=== PATIENT | male | born 1980 ===

== ENCOUNTER 2017-06-28 05:04 | Inpatient (IN) | payer SELFPAY ==
[2017-06-28] MEDS ORDERED: Sodium Chloride 0.9% 1,000 ML IV ONE (05:20)
[2017-06-28] MEDS ORDERED: Folic Acid 1 MG, Thiamine 100 MG, Multivitamin (MVI) 10 ML in Dextrose 5% In Water 1,00... IV SCH (05:30)
--- NOTE | 2017-06-28 05:41 | C.PDOC ---
History Of Present Illness 37 year old male with a Hx of chronic ETOH abuse presnets to the ER after having a seizure. Patient states he drink everyday, he drank yesterday morning but did not drink for the rest of the day; he reports he was sitting on the couch when he began seizing. Denies Hx of similar, nausea, vomiting, or headache. Time Seen by Provider: 06/28/17 05:21 Chief Complaint (Nursing): Seizure History Per: Patient History/Exam Limitations: no limitations Recent Seizure Activity Began: Just Before Arrival Number Of Seizures: One Length Of Seizures (Duration): Seconds Quality Of Seizure: Generalized Post-ictal Period: No Recent travel outside of the [place]: No Past Medical History Reviewed: Historical Data, Nursing Documentation, Vital Signs Vital Signs: Last Vital Signs Temp 99.3 F 06/28/17 16:00 Pulse 69 06/28/17 19:53 Resp 10 L 06/28/17 19:53 BP 116/85 06/28/17 19:53 Pulse Ox 97 06/28/17 19:53 Family History: States: Unknown Family Hx - Social History Hx Alcohol Use: Yes Hx Substance Use: No - Immunization History Hx Tetanus Toxoid Vaccination: No Hx Influenza Vaccination: No Hx Pneumococcal Vaccination: No Review Of Systems Constitutional: Negative for: Fever, Chills Cardiovascular: Negative for: Chest Pain, Palpitations Gastrointestinal: Negative for: Nausea, Vomiting Neurological: Positive for: Seizures. Negative for: Headache Physical Exam - Physical Exam Appears: Non-toxic, No Acute Distress, Other (Shaky) Skin: Normal Color, Warm, Dry Head: Atraumatic, Normacephalic Eye(s): bilateral: Normal Inspection, PERRL, EOMI Oral Mucosa: Moist Neck: Normal, Supple Chest: Symmetrical, No Tenderness Cardiovascular: Rhythm Regular Respiratory: Normal Breath Sounds, No Rales, No Rhonchi, No Wheezing Gastrointestinal/Abdominal: Soft, No Tenderness Neurological/Psych: Oriented x3, Normal Speech ED Course And Treatment - Laboratory Results Result Diagrams: 06/28/17 05:42 06/28/17 05:42 O2 Sat by Pulse Oximetry: 95 (Room air) Pulse Ox Interpretation: Normal Progress Note: CT head, blood work, and urinalysis ordered. Ativan, librium, and IV fluids administered. Disposition - Disposition Disposition: HOSPITALIZED Disposition Time: 07:00 Condition: SERIOUS - Clinical Impression Clinical Impression: Alcohol withdrawal seizure - PA / SWABBER / Resident Statement MD/DO has reviewed & agrees with the documentation as recorded. - Scribe Statement The provider has reviewed the documentation as recorded by the Scribdemetrice Bhagat All medical record entries made by the Nimeshibe were at my direction and personally dictated by me. I have reviewed the chart and agree that the record accurately reflects my personal performance of the history, physical exam, medical decision making, and the department course for this patient. I have also personally directed, reviewed, and agree with the discharge instructions and disposition. Physician Patient Turnover Patient Signed Over To: Lu Londono Handoff Comments: pending admission
[2017-06-28 05:48] LABS: BASO # 0.1 K/uL (0.0-0.2); BASO % 1.4 % (0.0-2.0); HEMOGLOBIN 12.4 g/dL (12.0-18.0); LYMPH # 2.5 K/uL (1.0-4.3); LYMPH % 41.5 % (20.0-40.0); MEAN CELL VOLUME 92.5 fL (80.0-94.0); MEAN CORPUSCULAR HEMOGLOBIN 30.8 pg (27.0-31.0); MEAN CORPUSCULAR HGB CONC 33.3 g/dL (33.0-37.0); MEAN PLATELET VOLUME 9.8 fL (7.2-11.7); MONO # 0.8 K/uL (0.0-0.8); MONO % 12.3 % (0.0-10.0); NEUT # 2.7 K/uL (1.8-7.0); NEUT % 44.8 % (50.0-75.0); NRBC % 0.1 % (0.0-2.0); RBC 4.04 Mil/uL (4.40-5.90); RED CELL DISTRIBUTION WIDTH 14.4 % (11.5-14.5); WHITE BLOOD COUNT 6.1 K/uL (4.8-10.8)
[2017-06-28 05:58] LABS: ALB/GLOB RATIO 0.9 (1.0-2.1); CALCIUM 9.1 mg/dl (8.6-10.4); GFR AFRICAN-AMERICAN > 60; GFR NON-AFRICAN AMERICAN > 60
--- NOTE | 2017-06-28 05:59 | CT ---
EXAM: CT Head Without Intravenous Contrast CLINICAL HISTORY: 37 years old, male; Pain; Headache; Additional info: Seizure TECHNIQUE: Axial computed tomography images of the head/brain without intravenous contrast. All CT scans at this facility use one or more dose reduction techniques, viz.: automated exposure control; ma/kV adjustment per patient size (including targeted exams where dose is matched to indication; i.e. head); or iterative reconstruction technique. COMPARISON: No relevant prior studies available. FINDINGS: Brain: There is mild diffuse cerebral atrophy present, consistent with this patient's age. No hemorrhage. No significant white matter disease. Ventricles: The ventricular system demonstrates mild diffuse compensatory enlargement. Bones/joints: Deformity of the medial wall of the left orbit, lamina papyracea could be secondary to old trauma. No acute fracture. Soft tissues: Unremarkable. Sinuses: There is mild mucoperiosteal thickening in the maxillary sinuses, consistent with chronic sinusitis. Mastoid air cells: Unremarkable as visualized. No mastoid effusion. IMPRESSION: No evidence of an acute intracranial abnormality.
[2017-06-28] MEDS ORDERED: Folic Acid 1 MG, Thiamine 100 MG, Multivitamin (MVI) 10 ML in Sodium Chloride 0.9% 1,00... IV SCH (06:00)
[2017-06-28 06:03] LABS: ALT/SGPT 84 U/L (21-72); AST/SGOT 241 U/L (17-59); BLOOD UREA NITROGEN 6 mg/dL (9-20)
[2017-06-28 06:26] LABS: SQUAMOUS EPITHIAL 1 /hpf (0-5); URINE BILIRUBIN NEGATIVE (NEGATIVE); URINE BLOOD 1+ (NEGATIVE); URINE CLARITY Hazy (Clear); URINE COLOR Yellow (YELLOW); URINE GLUCOSE (UA) 1+ mg/dL (Normal); URINE LEUKOCYTE ESTERASE NEG Leu/uL (Negative); URINE PROTEIN 3+ mg/dL (NEGATIVE); URINE UROBILINOGEN NORMAL mg/dL (0.2-1.0)
[2017-06-28 06:47] LABS: BARBITURATES, UR NEGATIVE (NEGATIVE); BENZODIAZEPINES, UR NEGATIVE (NEGATIVE); OPIATES, UR NEGATIVE (NEGATIVE); PHENCYCLIDINE, UR NEGATIVE (NEGATIVE)
[2017-06-28] MEDS ORDERED: Magnesium Sulfate 1 gm in D5W 1 GM/100 ML BAG IV STA (06:53)
[2017-06-28] MEDS ORDERED: Magnesium Sulfate 1 gm in D5W 1 GM/100 ML BAG IVPB ONE (06:58)
[2017-06-28] MEDS ORDERED: Multivitamin (MVI) 10 ML, Thiamine 100 MG, Folic Acid 1 MG in Sodium Chloride 0.9% 1,00... IV ONE (08:46)
[2017-06-28] MEDS: Sodium Chloride 0.9% 1,000 ML IV SCH ×4 (09:19→20:55)
[2017-06-28 09:30] LABS: AMYLASE 119 U/L (30-110); LIPASE 123 U/L (23-300)
[2017-06-28 09:46] LABS: INR 1.1
[2017-06-28 10:04] LABS: ARTERIAL BLOOD GAS HCO3 26.5 mmol/L (21-28); ARTERIAL BLOOD GAS O2 SAT 99.8 % (95-98); ARTERIAL BLOOD GAS PCO2 36 mm/Hg (35-45); ARTERIAL BLOOD GAS PH 7.46 (7.35-7.45); ARTERIAL BLOOD GAS PO2 127 mm/Hg (80-100); ARTERIAL BLOOD GAS TCO2 26.7 mmol/L (22-28)
--- NOTE | 2017-06-28 10:37 | CP.PCM.HP ---
<Yunier Manjarrez Jhonny - Last Filed: 06/28/17 11:54> History of Present Illness - History of Present Illness History of Present Illness: CC: "I passed out" HPI: Mr Back is a 37 year old male with a past medical history of chronic alcohol abuse who presented to the ER because his son saw him this AM with involuntary shaking. Per patient, he woke up at 4AM with left-sided squeezing chest pain while sitting on the couch and then he lost consciousness and woke up on the ground. He was then brought to the ER. He does not remember having urine or stool incontinence. His last drink was a 5th of vodka 2 days ago split with a friend. He said yesterday he vomited 7x, non-bloody. He reports having a normal appearing bowel movement yesterday. He stated that yesterday he noticed he had tremors. Of importance, he reports daily spontaneous nose bleeds for the past 6 months. He also noted black stool 1x about 2 months ago. In addition, he states that he began taking aspirin 3 months ago because he read online that it helps relieve chest pain. ED: Librium 100mg, Ativan 1mg IV, magnesium, Fluids -> patient was accepted by ICU PMD: none PMHx: chronic alcohol abuse PSHx: denies Allergies: NKA Home Medications: Aspirin 81mg PO QD FamHx: denies SocialHx: smokes baby cigars twice a week for past 5 years; drinks a 5th of vodka daily (per he used to drink less but lately it's been a 5th of vodka daily); denies illicit drug use; unemployed; lives at home with and son Present on Admission - Present on Admission Any Indicators Present on Admission: No Review of Systems - Constitutional Constitutional: absent: Chills, Fever, Lethargy, Night Sweats - EENT Eyes: absent: Change in Vision - Cardiovascular Cardiovascular: Chest Pain, Chest Pain at Rest. absent: Claudication, Dyspnea on Exertion, Leg Edema, Syncope - Respiratory Respiratory: absent: Cough, Wheezing - Gastrointestinal Gastrointestinal: Nausea, Vomiting. absent: Abdominal Pain, Bloating, Constipation, Diarrhea, Fecal Incontinence, Heartburn, Hematemesis, Hematochezia , Loose Stools - Genitourinary Genitourinary: absent: Dysuria - Integumentary Integumentary: absent: Bleeding Lesions - Neurological Neurological: Abnormal Speech, Lack of Coordination. absent: Confusion, Headaches, Paresthesias, Syncope, Weakness Past Patient History - Past Social History Smoking Status: Never Smoked - PSYCHIATRIC Hx Substance Use: No - SURGICAL HISTORY Hx Surgeries: No Meds Allergies/Adverse Reactions: Allergies Allergy/AdvReac Type Severity Reaction Status Date / Time No Known Allergies Allergy Unverified 06/28/17 05:17 Physical Exam - Constitutional Appears: No Acute Distress, Unkempt - Head Exam Head Exam: ATRAUMATIC, NORMAL INSPECTION - Eye Exam Eye Exam: EOMI Pupil Exam: PERRL - ENT Exam ENT Exam: Mucous Membranes Dry Additional comments: Dried bloody lesions on corners of mouth, R>L Tongue appeared erythematous which cuts/lesions that appeared bloody non-sclerotic eyes - Neck Exam Neck exam: Positive for: Normal Inspection. Negative for: Lymphadenopathy, Tenderness - Respiratory Exam Respiratory Exam: Clear to Auscultation Bilateral, NORMAL BREATHING PATTERN. absent: Rales, Rhonchi, Wheezes - Cardiovascular Exam Cardiovascular Exam: Tachycardia, REGULAR RHYTHM, +S1, +S2. absent: JVD, Systolic Murmur - GI/Abdominal Exam GI & Abdominal Exam: Normal Bowel Sounds, Soft. absent: Distended, Firm, Guarding, Hernia, Organomegaly, Rebound, Rigid, Tenderness - Rectal Exam Additional comments: tight anal tone; no growth palpated; brown stool - Extremities Exam Extremities exam: Positive for: normal capillary refill, normal inspection, pedal pulses present. Negative for: pedal edema, tenderness - Back Exam Back exam: NORMAL INSPECTION. absent: CVA tenderness (L), CVA tenderness (R), rash noted - Neurological Exam Neurological exam: Alert, CN II-XII Intact, Oriented x3 Additional comments: (+) tremulous - Skin Skin Exam: Intact, Normal Color, Warm Results - Vital Signs Recent Vital Signs: Last Vital Signs Temp 99.2 F 06/28/17 09:00 Pulse 105 H 06/28/17 09:40 Resp 16 06/28/17 09:40 BP 130/82 06/28/17 09:40 Pulse Ox 100 06/28/17 09:40 - Labs Result Diagrams: 06/28/17 05:42 06/28/17 05:42 Labs: Laboratory Results - last 24 hr 06/28/17 06/28/17 06/28/17 05:42 05:42 06:20 WBC 6.1 RBC 4.04 L Hgb 12.4 Hct 37.3 MCV 92.5 MCH 30.8 MCHC 33.3 RDW 14.4 Plt Count 117 L MPV 9.8 Neut % (Auto) 44.8 L Lymph % (Auto) 41.5 H [place] % (Auto) 12.3 H Eos % (Auto) 0.0 Baso % (Auto) 1.4 Neut # (Auto) 2.7 Lymph # (Auto) 2.5 [place] # (Auto) 0.8 Eos # (Auto) 0.0 Baso # (Auto) 0.1 Differential Comment PT INR Puncture Site pCO2 pO2 HCO3 ABG pH ABG Total CO2 ABG O2 Saturation ABG Base Excess [place] Test ABG Potassium A-a O2 Difference Respiratory Index Glucose Lactate Liter Flow FiO2 Sodium 141 Potassium 3.7 Chloride 95 L Carbon Dioxide 14 L Anion Gap 35 H BUN 6 L Creatinine 0.8 Est GFR ( Amer) > 60 Est GFR (Non-Af Amer) > 60 Random Glucose 151 H Calcium 9.1 Magnesium 1.5 L Total Bilirubin 1.3 AST 241 H ALT 84 H Alkaline Phosphatase 126 Total Protein 10.3 H Albumin 5.0 Globulin 5.3 H Albumin/Globulin Ratio 0.9 L Amylase 119 H Lipase 123 Arterial Blood Potassium Urine Color Yellow Urine Clarity Hazy Urine pH 6.0 Ur Specific Nolan 1.019 Urine Protein 3+ H Urine Glucose (UA) 1+ H Urine Ketones 1+ H Urine Blood 1+ H Urine Nitrate Negative Urine Bilirubin Negative Urine Urobilinogen Normal Ur Leukocyte Esterase Neg Urine WBC (Auto) 4 Urine RBC (Auto) 7 H Ur Squamous Epith Cells 1 Hyaline Casts 6-10 H Stool Occult Blood Urine Opiates Screen Urine Methadone Screen Ur Barbiturates Screen Ur Phencyclidine Scrn Ur Amphetamines Screen U Benzodiazepines Scrn U Oth Cocaine Metabols U Cannabinoids Screen Alcohol, Quantitative < 10 06/28/17 06/28/17 06/28/17 06:20 09:11 09:28 WBC RBC Hgb Hct MCV MCH MCHC RDW Plt Count MPV Neut % (Auto) Lymph % (Auto) [place] % (Auto) Eos % (Auto) Baso % (Auto) Neut # (Auto) Lymph # (Auto) [place] # (Auto) Eos # (Auto) Baso # (Auto) Differential Comment PT 12.0 INR 1.1 Puncture Site pCO2 pO2 HCO3 ABG pH ABG Total CO2 ABG O2 Saturation ABG Base Excess [place] Test ABG Potassium A-a O2 Difference Respiratory Index Glucose Lactate Liter Flow FiO2 Sodium Potassium Chloride Carbon Dioxide Anion Gap BUN Creatinine Est GFR ( Amer) Est GFR (Non-Af Amer) Random Glucose Calcium Magnesium Total Bilirubin AST ALT Alkaline Phosphatase Total Protein Albumin Globulin Albumin/Globulin Ratio Amylase Lipase Arterial Blood Potassium Urine Color Urine Clarity Urine pH Ur Specific [place] Urine Protein Urine Glucose (UA) Urine Ketones Urine Blood Urine Nitrate Urine Bilirubin Urine Urobilinogen Ur Leukocyte Esterase Urine WBC (Auto) Urine RBC (Auto) Ur Squamous Epith Cells Hyaline Casts Stool Occult Blood Negative Urine Opiates Screen Negative Urine Methadone Screen Negative Ur Barbiturates Screen Negative Ur Phencyclidine Scrn Negative Ur Amphetamines Screen Negative U Benzodiazepines Scrn Negative U Oth Cocaine Metabols Negative U Cannabinoids Screen Negative Alcohol, Quantitative 06/28/17 09:52 WBC RBC Hgb Hct MCV MCH MCHC RDW Plt Count MPV Neut % (Auto) Lymph % (Auto) [place] % (Auto) Eos % (Auto) Baso % (Auto) Neut # (Auto) Lymph # (Auto) [place] # (Auto) Eos # (Auto) Baso # (Auto) Differential Comment PT INR Puncture Site Rba pCO2 36 pO2 127 H HCO3 26.5 ABG pH 7.46 H ABG Total CO2 26.7 ABG O2 Saturation 99.8 H ABG Base Excess 2.0 [place] Test Na ABG Potassium 3.0 L A-a O2 Difference 42.0 Respiratory Index 0.3 Glucose 98 Lactate 0.7 Liter Flow 3.0 FiO2 30.0 Sodium 136.0 Potassium Chloride 103.0 Carbon Dioxide Anion Gap BUN Creatinine Est GFR ( Amer) Est GFR (Non-Af Amer) Random Glucose Calcium Magnesium Total Bilirubin AST ALT Alkaline Phosphatase Total Protein Albumin Globulin Albumin/Globulin Ratio Amylase Lipase Arterial Blood Potassium 3.0 L Urine Color Urine Clarity Urine pH Ur Specific Nolan Urine Protein Urine Glucose (UA) Urine Ketones Urine Blood Urine Nitrate Urine Bilirubin Urine Urobilinogen Ur Leukocyte Esterase Urine WBC (Auto) Urine RBC (Auto) Ur Squamous Epith Cells Hyaline Casts Stool Occult Blood Urine Opiates Screen Urine Methadone Screen Ur Barbiturates Screen Ur Phencyclidine Scrn Ur Amphetamines Screen U Benzodiazepines Scrn U Oth Cocaine Metabols U Cannabinoids Screen Alcohol, Quantitative Assessment & Plan (1) Alcohol withdrawal seizure Assessment and Plan: Alcohol Abuse Metabolic Acidiosis Upgraded to ICU given risk of delirium tremens Patient reports last drink 2-3 days ago (drinking hx of multiple years) Family witnessed tonic-clonic seizure lasting seconds that included tongue biting Aspiration precautions/Seizure precautions Alcohol withdrawal assessments Q1H/Neuro checks Q4H Meds: Ativan 1mg IV Q4H PRN for seizures Clonidine 0.1mg PO Q4H PRN Folic Acid 1mg IV QD NS @ 100cc/hr Imaging: CT head w/o contrast: no evidence of an acute abnormality Status: Acute Priority: High (2) Upper GI bleed Assessment and Plan: GI consult, Dr Ricardo. Will follow recs. Risk Factors: alcohol, aspirin Monitor CBC Protonix 40mg IV Q12H Status: Acute Priority: High (3) Nausea & vomiting Assessment and Plan: Likely secondary to alcohol withdrawal Zofran 4mg IV Q6H PRN for nausea * Pending EKG - will check QTc Status: Acute Priority: High (4) Epistaxis Assessment and Plan: Daily 6 month hx of epistaxis Takes daily ASA for chest pain for last 6 months Unclear if liver cirrhotic/alcoholic disease Status: Acute Priority: High (5) Thrombocytopenia Assessment and Plan: Platelets on admission: 117 AST/ALT on admission: 241/84 Secondary to aspirin and alcohol F/U Abdominal ultrasound to check for liver pathology Status: Acute Priority: High (6) Chest pain Assessment and Plan: F/U Serial ROMIs Q6H and EKGs Q6H Check Lipid panel and TSH/T4 Status: Acute Priority: Medium (7) Prophylactic measure Assessment and Plan: Contraindication to VTE - acute bleeding SCDs Protonix 40mg IV Q12H NPO for now Status: Acute Priority: Low <Maral Avilez V - Last Filed: 06/28/17 12:56> Results - Vital Signs Recent Vital Signs: Last Vital Signs Temp 98.1 F 06/28/17 12:00 Pulse 94 H 06/28/17 12:04 Resp 15 06/28/17 12:04 BP 120/78 06/28/17 12:04 Pulse Ox 96 06/28/17 12:04 - Labs Result Diagrams: 06/28/17 05:42 06/28/17 05:42 Labs: Laboratory Results - last 24 hr 06/28/17 06/28/17 06/28/17 05:42 05:42 06:20 WBC 6.1 RBC 4.04 L Hgb 12.4 Hct 37.3 MCV 92.5 MCH 30.8 MCHC 33.3 RDW 14.4 Plt Count 117 L MPV 9.8 Neut % (Auto) 44.8 L Lymph % (Auto) 41.5 H [place] % (Auto) 12.3 H Eos % (Auto) 0.0 Baso % (Auto) 1.4 Neut # (Auto) 2.7 Lymph # (Auto) 2.5 [place] # (Auto) 0.8 Eos # (Auto) 0.0 Baso # (Auto) 0.1 Differential Comment PT INR Puncture Site pCO2 pO2 HCO3 ABG pH ABG Total CO2 ABG O2 Saturation ABG Base Excess [place] Test ABG Potassium A-a O2 Difference Respiratory Index Glucose Lactate Liter Flow FiO2 Sodium 141 Potassium 3.7 Chloride 95 L Carbon Dioxide 14 L Anion Gap 35 H BUN 6 L Creatinine 0.8 Est GFR ( Amer) > 60 Est GFR (Non-Af Amer) > 60 Random Glucose 151 H Calcium 9.1 Magnesium 1.5 L Total Bilirubin 1.3 AST 241 H ALT 84 H Alkaline Phosphatase 126 Total Protein 10.3 H Albumin 5.0 Globulin 5.3 H Albumin/Globulin Ratio 0.9 L Amylase 119 H Lipase 123 Arterial Blood Potassium Urine Color Yellow Urine Clarity Hazy Urine pH 6.0 Ur Specific Nolan 1.019 Urine Protein 3+ H Urine Glucose (UA) 1+ H Urine Ketones 1+ H Urine Blood 1+ H Urine Nitrate Negative Urine Bilirubin Negative Urine Urobilinogen Normal Ur Leukocyte Esterase Neg Urine WBC (Auto) 4 Urine RBC (Auto) 7 H Ur Squamous Epith Cells 1 Hyaline Casts 6-10 H Stool Occult Blood Urine Opiates Screen Urine Methadone Screen Ur Barbiturates Screen Ur Phencyclidine Scrn Ur Amphetamines Screen U Benzodiazepines Scrn U Oth Cocaine Metabols U Cannabinoids Screen Alcohol, Quantitative < 10 06/28/17 06/28/17 06/28/17 06:20 09:11 09:28 WBC RBC Hgb Hct MCV MCH MCHC RDW Plt Count MPV Neut % (Auto) Lymph % (Auto) [place] % (Auto) Eos % (Auto) Baso % (Auto) Neut # (Auto) Lymph # (Auto) [place] # (Auto) Eos # (Auto) Baso # (Auto) Differential Comment PT 12.0 INR 1.1 Puncture Site pCO2 pO2 HCO3 ABG pH ABG Total CO2 ABG O2 Saturation ABG Base Excess [place] Test ABG Potassium A-a O2 Difference Respiratory Index Glucose Lactate Liter Flow FiO2 Sodium Potassium Chloride Carbon Dioxide Anion Gap BUN Creatinine Est GFR ( Amer) Est GFR (Non-Af Amer) Random Glucose Calcium Magnesium Total Bilirubin AST ALT Alkaline Phosphatase Total Protein Albumin Globulin Albumin/Globulin Ratio Amylase Lipase Arterial Blood Potassium Urine Color Urine Clarity Urine pH Ur Specific [place] Urine Protein Urine Glucose (UA) Urine Ketones Urine Blood Urine Nitrate Urine Bilirubin Urine Urobilinogen Ur Leukocyte Esterase Urine WBC (Auto) Urine RBC (Auto) Ur Squamous Epith Cells Hyaline Casts Stool Occult Blood Negative Urine Opiates Screen Negative Urine Methadone Screen Negative Ur Barbiturates Screen Negative Ur Phencyclidine Scrn Negative Ur Amphetamines Screen Negative U Benzodiazepines Scrn Negative U Oth Cocaine Metabols Negative U Cannabinoids Screen Negative Alcohol, Quantitative 06/28/17 09:52 WBC RBC Hgb Hct MCV MCH MCHC RDW Plt Count MPV Neut % (Auto) Lymph % (Auto) [place] % (Auto) Eos % (Auto) Baso % (Auto) Neut # (Auto) Lymph # (Auto) [place] # (Auto) Eos # (Auto) Baso # (Auto) Differential Comment PT INR Puncture Site Rba pCO2 36 pO2 127 H HCO3 26.5 ABG pH 7.46 H ABG Total CO2 26.7 ABG O2 Saturation 99.8 H ABG Base Excess 2.0 [place] Test Na ABG Potassium 3.0 L A-a O2 Difference 42.0 Respiratory Index 0.3 Glucose 98 Lactate 0.7 Liter Flow 3.0 FiO2 30.0 Sodium 136.0 Potassium Chloride 103.0 Carbon Dioxide Anion Gap BUN Creatinine Est GFR ( Amer) Est GFR (Non-Af Amer) Random Glucose Calcium Magnesium Total Bilirubin AST ALT Alkaline Phosphatase Total Protein Albumin Globulin Albumin/Globulin Ratio Amylase Lipase Arterial Blood Potassium 3.0 L Urine Color Urine Clarity Urine pH Ur Specific Nolan Urine Protein Urine Glucose (UA) Urine Ketones Urine Blood Urine Nitrate Urine Bilirubin Urine Urobilinogen Ur Leukocyte Esterase Urine WBC (Auto) Urine RBC (Auto) Ur Squamous Epith Cells Hyaline Casts Stool Occult Blood Urine Opiates Screen Urine Methadone Screen Ur Barbiturates Screen Ur Phencyclidine Scrn Ur Amphetamines Screen U Benzodiazepines Scrn U Oth Cocaine Metabols U Cannabinoids Screen Alcohol, Quantitative Attending/Attestation - Attestation I have personally seen and examined this patient.: Yes I have fully participated in the care of the patient.: Yes I have reviewed all pertinent clinical information: Yes Notes (Text): Patient seen, examined and case discussed with day-time resident. Patient seen this morning in [facility] Bed 4 with his at bedside. Patient is awake, alert, oriented X3. Prior to my arrival, patient has received Librium 100mg PO X1, and Ativan 1mg IVPX1. Patient has sustained lip laceration , clotted blood over lip, and bloody oropharygneal. Patient is tremulous and noted tongue fasciculations. Per discussion with , noted over 430AM, she was awoken this morning by her son who witnessed her in body tremors". She reports her in full body seizure, attempted CPR, was not responding to her, last for few seconds. During the seizure, patient coughed up blood. This prompted her to bring to hospital. Patient reports last drink was 3 days ago. Patient reports chronically every 2 weeks, large bottle of rum and beer. Patient reports yesterday he had shakes and had nausea and nonbloody vomiting which did not stop and unable to sleep. Patient reports he also takes Aspirin every day for chest pain he has been experiencing for the past one year, because he read up that he should. Patient also reports he has been having black stool but no blood per rectum. Patient reports he has never had alcohol withdrawal seizures before nor has been hospitalized for it. When I ask him why he drinks, he reports "i don't know. I am bored." Case discussed with ICU, patient upgraded to ICU, concern for risk for delirium tremens. It is unclear if the bloody oropharygneal is from epistaxis bleeding, variceal or, upper gi bleeding since patient reported he coughed up blood. Will consult GI. Resident has performed rectal no gross hematochezia noted. Coagulations ordered. Patient consented for blood transfusion if needed, witnessed by the nurse, consent in the chart. EKG ordered shows NSR; heart rate 100. Abdominal US ordered to evaluate severity of liver disease, alcoholic liver disease. Patient is receiving IV fluids at bedside. Reviewed CT head no acute pathology noted. Assessment/Plan (1) Alcohol withdrawal seizure Chronic Alcohol Abuse Metabolic Acidosis Assessment and Plan: * Upgraded to ICU given risk of delirium tremens * Patient reports last drink 2-3 days ago (drinking hx of multiple years) * Family witnessed tonic-clonic seizure lasting seconds that included tongue biting this morning 4:30AM; first time seizure, no prior history of alcohol withdrawal seizure * Aspiration precautions * Seizure precautions * Alcohol withdrawal assessments Q1H/Neuro checks Q4H * Ativan 1mg IV Q4H PRN for seizures * Clonidine 0.1mg PO Q4H PRN * Banana bag * NS @ 100cc/hr * Imaging: CT head w/o contrast: no evidence of an acute abnormality Status: Acute Priority: High (2) Upper GI bleed Assessment and Plan: * GI consult, Dr Ricardo supervisor electronics processing-->discussed with GI and GI fellow who will see the patient; help appreciated * Risk Factors: alcohol, aspirin * Monitor CBC * Protonix 40mg IV Q12H Status: Acute Priority: High (3) Nausea & vomiting Assessment and Plan: * Likely secondary to alcohol withdrawal * Zofran 4mg IV Q6H PRN for nausea--->no Prolonged QT noted on EKG Status: Acute Priority: High (4) Epistaxis Assessment and Plan: * Daily 6 month hx of epistaxis * Takes daily ASA for chest pain for last 6 months * Unclear if liver cirrhotic/alcoholic disease Status: Acute Priority: High (5) Alcoholic Hepatitis Thrombocytopenia Assessment and Plan: * Platelets on admission: 117 * AST/ALT on admission: 241/84 * Secondary to aspirin and alcohol * F/U Abdominal ultrasound to check for liver pathology * Check hepatitis panel Status: Acute Priority: High (6) Chest pain Assessment and Plan: * F/U Serial ROMIs Q6H and EKGs Q6H * Check Lipid panel and TSH/Free T4 for cardiac risk factor * 1st EKG: NSR Status: Acute Priority: Medium (7) Prophylactic measure Assessment and Plan: * Contraindication to VTE -->thrombocytopenia, possible upper GI bleed * SCDs b/l * Protonix 40mg IV Q12H * NPO for now * Aspiration precautions * Seizure precautions Status: Acute Priority: Low
--- NOTE | 2017-06-28 11:37 | CP.CCUPN ---
CCU Subjective - Physician Review Events Since Last Encounter (Free Text): 06/28/17 11:40 37yo M. PMHx ETOH abuse. Today had possible seizure activity with stool incontinence. Patient showing signs of alcohol withdrawal, with tremors. He has recently been having spontaneous epistaxis, melanotic stool. Yesterday he had hematemesis. CCU Objective - Vital Signs / Intake & Output Vital Signs (Last 4 hours): Vital Signs Temp Pulse Resp BP Pulse Ox 06/28/17 10:34 17 95 06/28/17 09:40 105 H 16 130/82 100 06/28/17 09:00 99.2 F 104 H 16 133/79 98 06/28/17 08:11 98 F 115 H 13 122/75 100 Intake and Output (Last 8hrs): Intake & Output 06/27/17 06/28/17 06/28/17 22:59 06:59 14:59 Intake Total 50 Balance 50 Weight 145 lb 127 lb 3.307 oz Intake: Oral 50 Other: Voiding Method Urinal - Physical Exam Head: Positive for: Atraumatic, Normocephalic Pupils: Positive for: PERRL Extroacular Muscles: Positive for: EOMI Conjunctiva: Positive for: Normal Mouth: Positive for: Moist Mucous Membranes Neck: Positive for: Normal Range of Motion Respiratory/Chest: Positive for: Clear to Auscultation Cardiovascular: Positive for: Regular Rate and Rhythm Abdomen: Positive for: Normal Bowel Sounds. Negative for: Tenderness, Distention Neurological: Positive for: GCS=15, CN II-XII Intact Psychiatric: Positive for: Alert, Oriented x 3, Anxious - Medications Active Medications: Active Medications Generic Name Dose Route Start Last Admin Trade Name Freq PRN Reason Stop Dose Admin Clonidine HCl 0.1 mg 06/28/17 08:46 06/28/17 09:09 Catapres PO 0.1 mg Q4H PRN Administration Symptoms of alcohol withdrawl Folic Acid 1 mg/ Thiamine HCl 1,011.2 mls @ 100 mls/hr 06/28/17 09:00 09:15 100 mg/ Multivitamins/Vitamin IV 07/01/17 09:01 100 mls/hr C 10 ml/ Sodium Chloride DAILY ALIYAH Administration Sodium Chloride 1,000 mls @ 100 mls/hr 06/28/17 09:00 06/28/17 09:19 Sodium Chloride 0.9% IV Not Given .Q10H ALIYAH Lorazepam 1 mg 06/28/17 08:46 06/28/17 09:09 Ativan IVP 1 mg Q4H PRN Administration Symptoms of alcohol withdrawl Ondansetron HCl 4 mg 06/28/17 11:00 Zofran Inj IVP Q6H PRN Nausea/Vomiting Pantoprazole Sodium 40 mg 06/28/17 09:00 06/28/17 09:18 Protonix Inj IVP 40 mg Q12H ALIYAH Administration - Patient Studies Lab Studies: Lab Studies 06/28/17 06/28/17 06/28/17 Range/Units 09:52 09:28 09:11 WBC (4.8-10.8) K/uL RBC (4.40-5.90) Mil/uL Hgb (12.0-18.0) g/dL Hct (35.0-51.0) % MCV (80.0-94.0) fL MCH (27.0-31.0) pg MCHC (33.0-37.0) g/dL RDW (11.5-14.5) % Plt Count (130-400) K/uL MPV (7.2-11.7) fL Neut % (Auto) (50.0-75.0) % Lymph % (Auto) (20.0-40.0) % Giles % (Auto) (0.0-10.0) % Eos % (Auto) (0.0-4.0) % Baso % (Auto) (0.0-2.0) % Neut # (Auto) (1.8-7.0) K/uL Lymph # (Auto) (1.0-4.3) K/uL Giles # (Auto) (0.0-0.8) K/uL Eos # (Auto) (0.0-0.7) K/uL Baso # (Auto) (0.0-0.2) K/uL Differential Comment PT 12.0 (9.7-12.2) SECONDS INR 1.1 Puncture Site Rba pCO2 36 (35-45) mm/Hg pO2 127 H (80-100) mm/Hg HCO3 26.5 (21-28) mmol/L ABG pH 7.46 H (7.35-7.45) ABG Total CO2 26.7 (22-28) mmol/L ABG O2 Saturation 99.8 H (95-98) % ABG Base Excess 2.0 (-2.0-3.0) mmol/L Thiago Test Na ABG Potassium 3.0 L (3.6-5.2) mmol/L A-a O2 Difference 42.0 mm/Hg Respiratory Index 0.3 Glucose 98 (75-110) mg/dl Lactate 0.7 (0.7-2.1) mmol/L Liter Flow 3.0 FiO2 30.0 % Sodium 136.0 (132-148) mmol/L Potassium (3.6-5.2) mmol/L Chloride 103.0 (98-107) mmol/L Carbon Dioxide (22-30) mmol/L Anion Gap (10-20) BUN (9-20) mg/dL Creatinine (0.8-1.5) mg/dL Est GFR ( Amer) Est GFR (Non-Af Amer) Random Glucose (75-110) mg/dL Calcium (8.6-10.4) mg/dl Magnesium (1.6-2.3) mg/dL Total Bilirubin (0.2-1.3) mg/dL AST (17-59) U/L ALT (21-72) U/L Alkaline Phosphatase (38-126) U/L Total Protein (6.3-8.3) g/dL Albumin (3.5-5.0) g/dL Globulin (2.2-3.9) gm/dL Albumin/Globulin Ratio (1.0-2.1) Amylase (30-110) U/L Lipase (23-300) U/L Arterial Blood Potassium 3.0 L (3.6-5.2) mmol/L Urine Color (YELLOW) Urine Clarity (Clear) Urine pH (5.0-8.0) Ur Specific [place] (1.003-1.030) Urine Protein (NEGATIVE) mg/dL Urine Glucose (UA) (Normal) mg/dL Urine Ketones (NEGATIVE) mg/dL Urine Blood (NEGATIVE) Urine Nitrate (NEGATIVE) Urine Bilirubin (NEGATIVE) Urine Urobilinogen (0.2-1.0) mg/dL Ur Leukocyte Esterase (Negative) Chris/uL Urine WBC (Auto) (0-5) /hpf Urine RBC (Auto) (0-3) /hpf Ur Squamous Epith Cells (0-5) /hpf Hyaline Casts (0-2) /lpf Stool Occult Blood Negative (NEGATIVE) Urine Opiates Screen (NEGATIVE) Urine Methadone Screen (NEGATIVE) Ur Barbiturates Screen (NEGATIVE) Ur Phencyclidine Scrn (NEGATIVE) Ur Amphetamines Screen (NEGATIVE) U Benzodiazepines Scrn (NEGATIVE) U Oth Cocaine Metabols (NEGATIVE) U Cannabinoids Screen (NEGATIVE) Alcohol, Quantitative (0-10) mg/dl 06/28/17 06/28/17 06/28/17 Range/Units 06:20 06:20 05:42 WBC (4.8-10.8) K/uL RBC (4.40-5.90) Mil/uL Hgb (12.0-18.0) g/dL Hct (35.0-51.0) % MCV (80.0-94.0) fL MCH (27.0-31.0) pg MCHC (33.0-37.0) g/dL RDW (11.5-14.5) % Plt Count (130-400) K/uL MPV (7.2-11.7) fL Neut % (Auto) (50.0-75.0) % Lymph % (Auto) (20.0-40.0) % Giles % (Auto) (0.0-10.0) % Eos % (Auto) (0.0-4.0) % Baso % (Auto) (0.0-2.0) % Neut # (Auto) (1.8-7.0) K/uL Lymph # (Auto) (1.0-4.3) K/uL Giles # (Auto) (0.0-0.8) K/uL Eos # (Auto) (0.0-0.7) K/uL Baso # (Auto) (0.0-0.2) K/uL Differential Comment PT (9.7-12.2) SECONDS INR Puncture Site pCO2 (35-45) mm/Hg pO2 (80-100) mm/Hg HCO3 (21-28) mmol/L ABG pH (7.35-7.45) ABG Total CO2 (22-28) mmol/L ABG O2 Saturation (95-98) % ABG Base Excess (-2.0-3.0) mmol/L Thiago Test ABG Potassium (3.6-5.2) mmol/L A-a O2 Difference mm/Hg Respiratory Index Glucose (75-110) mg/dl Lactate (0.7-2.1) mmol/L Liter Flow FiO2 % Sodium 141 (132-148) mmol/L Potassium 3.7 (3.6-5.2) mmol/L Chloride 95 L (98-107) mmol/L Carbon Dioxide 14 L (22-30) mmol/L Anion Gap 35 H (10-20) BUN 6 L (9-20) mg/dL Creatinine 0.8 (0.8-1.5) mg/dL Est GFR ( Amer) > 60 Est GFR (Non-Af Amer) > 60 Random Glucose 151 H (75-110) mg/dL Calcium 9.1 (8.6-10.4) mg/dl Magnesium 1.5 L (1.6-2.3) mg/dL Total Bilirubin 1.3 (0.2-1.3) mg/dL AST 241 H (17-59) U/L ALT 84 H (21-72) U/L Alkaline Phosphatase 126 (38-126) U/L Total Protein 10.3 H (6.3-8.3) g/dL Albumin 5.0 (3.5-5.0) g/dL Globulin 5.3 H (2.2-3.9) gm/dL Albumin/Globulin Ratio 0.9 L (1.0-2.1) Amylase 119 H (30-110) U/L Lipase 123 (23-300) U/L Arterial Blood Potassium (3.6-5.2) mmol/L Urine Color Yellow (YELLOW) Urine Clarity Hazy (Clear) Urine pH 6.0 (5.0-8.0) Ur Specific [place] 1.019 (1.003-1.030) Urine Protein 3+ H (NEGATIVE) mg/dL Urine Glucose (UA) 1+ H (Normal) mg/dL Urine Ketones 1+ H (NEGATIVE) mg/dL Urine Blood 1+ H (NEGATIVE) Urine Nitrate Negative (NEGATIVE) Urine Bilirubin Negative (NEGATIVE) Urine Urobilinogen Normal (0.2-1.0) mg/dL Ur Leukocyte Esterase Neg (Negative) Chris/uL Urine WBC (Auto) 4 (0-5) /hpf Urine RBC (Auto) 7 H (0-3) /hpf Ur Squamous Epith Cells 1 (0-5) /hpf Hyaline Casts 6-10 H (0-2) /lpf Stool Occult Blood (NEGATIVE) Urine Opiates Screen Negative (NEGATIVE) Urine Methadone Screen Negative (NEGATIVE) Ur Barbiturates Screen Negative (NEGATIVE) Ur Phencyclidine Scrn Negative (NEGATIVE) Ur Amphetamines Screen Negative (NEGATIVE) U Benzodiazepines Scrn Negative (NEGATIVE) U Oth Cocaine Metabols Negative (NEGATIVE) U Cannabinoids Screen Negative (NEGATIVE) Alcohol, Quantitative < 10 (0-10) mg/dl 06/28/17 Range/Units 05:42 WBC 6.1 (4.8-10.8) K/uL RBC 4.04 L (4.40-5.90) Mil/uL Hgb 12.4 (12.0-18.0) g/dL Hct 37.3 (35.0-51.0) % MCV 92.5 (80.0-94.0) fL MCH 30.8 (27.0-31.0) pg MCHC 33.3 (33.0-37.0) g/dL RDW 14.4 (11.5-14.5) % Plt Count 117 L (130-400) K/uL MPV 9.8 (7.2-11.7) fL Neut % (Auto) 44.8 L (50.0-75.0) % Lymph % (Auto) 41.5 H (20.0-40.0) % Giles % (Auto) 12.3 H (0.0-10.0) % Eos % (Auto) 0.0 (0.0-4.0) % Baso % (Auto) 1.4 (0.0-2.0) % Neut # (Auto) 2.7 (1.8-7.0) K/uL Lymph # (Auto) 2.5 (1.0-4.3) K/uL Giles # (Auto) 0.8 (0.0-0.8) K/uL Eos # (Auto) 0.0 (0.0-0.7) K/uL Baso # (Auto) 0.1 (0.0-0.2) K/uL Differential Comment PT (9.7-12.2) SECONDS INR Puncture Site pCO2 (35-45) mm/Hg pO2 (80-100) mm/Hg HCO3 (21-28) mmol/L ABG pH (7.35-7.45) ABG Total CO2 (22-28) mmol/L ABG O2 Saturation (95-98) % ABG Base Excess (-2.0-3.0) mmol/L Thiago Test ABG Potassium (3.6-5.2) mmol/L A-a O2 Difference mm/Hg Respiratory Index Glucose (75-110) mg/dl Lactate (0.7-2.1) mmol/L Liter Flow FiO2 % Sodium (132-148) mmol/L Potassium (3.6-5.2) mmol/L Chloride (98-107) mmol/L Carbon Dioxide (22-30) mmol/L Anion Gap (10-20) BUN (9-20) mg/dL Creatinine (0.8-1.5) mg/dL Est GFR ( Amer) Est GFR (Non-Af Amer) Random Glucose (75-110) mg/dL Calcium (8.6-10.4) mg/dl Magnesium (1.6-2.3) mg/dL Total Bilirubin (0.2-1.3) mg/dL AST (17-59) U/L ALT (21-72) U/L Alkaline Phosphatase (38-126) U/L Total Protein (6.3-8.3) g/dL Albumin (3.5-5.0) g/dL Globulin (2.2-3.9) gm/dL Albumin/Globulin Ratio (1.0-2.1) Amylase (30-110) U/L Lipase (23-300) U/L Arterial Blood Potassium (3.6-5.2) mmol/L Urine Color (YELLOW) Urine Clarity (Clear) Urine pH (5.0-8.0) Ur Specific [place] (1.003-1.030) Urine Protein (NEGATIVE) mg/dL Urine Glucose (UA) (Normal) mg/dL Urine Ketones (NEGATIVE) mg/dL Urine Blood (NEGATIVE) Urine Nitrate (NEGATIVE) Urine Bilirubin (NEGATIVE) Urine Urobilinogen (0.2-1.0) mg/dL Ur Leukocyte Esterase (Negative) Chris/uL Urine WBC (Auto) (0-5) /hpf Urine RBC (Auto) (0-3) /hpf Ur Squamous Epith Cells (0-5) /hpf Hyaline Casts (0-2) /lpf Stool Occult Blood (NEGATIVE) Urine Opiates Screen (NEGATIVE) Urine Methadone Screen (NEGATIVE) Ur Barbiturates Screen (NEGATIVE) Ur Phencyclidine Scrn (NEGATIVE) Ur Amphetamines Screen (NEGATIVE) U Benzodiazepines Scrn (NEGATIVE) U Oth Cocaine Metabols (NEGATIVE) U Cannabinoids Screen (NEGATIVE) Alcohol, Quantitative (0-10) mg/dl Laboratory Results - last 24 hr 06/28/17 06/28/17 06/28/17 05:42 05:42 06:20 WBC 6.1 RBC 4.04 L Hgb 12.4 Hct 37.3 MCV 92.5 MCH 30.8 MCHC 33.3 RDW 14.4 Plt Count 117 L MPV 9.8 Neut % (Auto) 44.8 L Lymph % (Auto) 41.5 H Giles % (Auto) 12.3 H Eos % (Auto) 0.0 Baso % (Auto) 1.4 Neut # (Auto) 2.7 Lymph # (Auto) 2.5 Giles # (Auto) 0.8 Eos # (Auto) 0.0 Baso # (Auto) 0.1 Differential Comment PT INR Puncture Site pCO2 pO2 HCO3 ABG pH ABG Total CO2 ABG O2 Saturation ABG Base Excess Thiago Test ABG Potassium A-a O2 Difference Respiratory Index Glucose Lactate Liter Flow FiO2 Sodium 141 Potassium 3.7 Chloride 95 L Carbon Dioxide 14 L Anion Gap 35 H BUN 6 L Creatinine 0.8 Est GFR ( Amer) > 60 Est GFR (Non-Af Amer) > 60 Random Glucose 151 H Calcium 9.1 Magnesium 1.5 L Total Bilirubin 1.3 AST 241 H ALT 84 H Alkaline Phosphatase 126 Total Protein 10.3 H Albumin 5.0 Globulin 5.3 H Albumin/Globulin Ratio 0.9 L Amylase 119 H Lipase 123 Arterial Blood Potassium Urine Color Yellow Urine Clarity Hazy Urine pH 6.0 Ur Specific [place] 1.019 Urine Protein 3+ H Urine Glucose (UA) 1+ H Urine Ketones 1+ H Urine Blood 1+ H Urine Nitrate Negative Urine Bilirubin Negative Urine Urobilinogen Normal Ur Leukocyte Esterase Neg Urine WBC (Auto) 4 Urine RBC (Auto) 7 H Ur Squamous Epith Cells 1 Hyaline Casts 6-10 H Stool Occult Blood Urine Opiates Screen Urine Methadone Screen Ur Barbiturates Screen Ur Phencyclidine Scrn Ur Amphetamines Screen U Benzodiazepines Scrn U Oth Cocaine Metabols U Cannabinoids Screen Alcohol, Quantitative < 10 06/28/17 06/28/17 06/28/17 06:20 09:11 09:28 WBC RBC Hgb Hct MCV MCH MCHC RDW Plt Count MPV Neut % (Auto) Lymph % (Auto) Giles % (Auto) Eos % (Auto) Baso % (Auto) Neut # (Auto) Lymph # (Auto) Giles # (Auto) Eos # (Auto) Baso # (Auto) Differential Comment PT 12.0 INR 1.1 Puncture Site pCO2 pO2 HCO3 ABG pH ABG Total CO2 ABG O2 Saturation ABG Base Excess Thiago Test ABG Potassium A-a O2 Difference Respiratory Index Glucose Lactate Liter Flow FiO2 Sodium Potassium Chloride Carbon Dioxide Anion Gap BUN Creatinine Est GFR ( Amer) Est GFR (Non-Af Amer) Random Glucose Calcium Magnesium Total Bilirubin AST ALT Alkaline Phosphatase Total Protein Albumin Globulin Albumin/Globulin Ratio Amylase Lipase Arterial Blood Potassium Urine Color Urine Clarity Urine pH Ur Specific [place] Urine Protein Urine Glucose (UA) Urine Ketones Urine Blood Urine Nitrate Urine Bilirubin Urine Urobilinogen Ur Leukocyte Esterase Urine WBC (Auto) Urine RBC (Auto) Ur Squamous Epith Cells Hyaline Casts Stool Occult Blood Negative Urine Opiates Screen Negative Urine Methadone Screen Negative Ur Barbiturates Screen Negative Ur Phencyclidine Scrn Negative Ur Amphetamines Screen Negative U Benzodiazepines Scrn Negative U Oth Cocaine Metabols Negative U Cannabinoids Screen Negative Alcohol, Quantitative 06/28/17 09:52 WBC RBC Hgb Hct MCV MCH MCHC RDW Plt Count MPV Neut % (Auto) Lymph % (Auto) Giles % (Auto) Eos % (Auto) Baso % (Auto) Neut # (Auto) Lymph # (Auto) Giles # (Auto) Eos # (Auto) Baso # (Auto) Differential Comment PT INR Puncture Site Rba pCO2 36 pO2 127 H HCO3 26.5 ABG pH 7.46 H ABG Total CO2 26.7 ABG O2 Saturation 99.8 H ABG Base Excess 2.0 Thiago Test Na ABG Potassium 3.0 L A-a O2 Difference 42.0 Respiratory Index 0.3 Glucose 98 Lactate 0.7 Liter Flow 3.0 FiO2 30.0 Sodium 136.0 Potassium Chloride 103.0 Carbon Dioxide Anion Gap BUN Creatinine Est GFR ( Amer) Est GFR (Non-Af Amer) Random Glucose Calcium Magnesium Total Bilirubin AST ALT Alkaline Phosphatase Total Protein Albumin Globulin Albumin/Globulin Ratio Amylase Lipase Arterial Blood Potassium 3.0 L Urine Color Urine Clarity Urine pH Ur Specific [place] Urine Protein Urine Glucose (UA) Urine Ketones Urine Blood Urine Nitrate Urine Bilirubin Urine Urobilinogen Ur Leukocyte Esterase Urine WBC (Auto) Urine RBC (Auto) Ur Squamous Epith Cells Hyaline Casts Stool Occult Blood Urine Opiates Screen Urine Methadone Screen Ur Barbiturates Screen Ur Phencyclidine Scrn Ur Amphetamines Screen U Benzodiazepines Scrn U Oth Cocaine Metabols U Cannabinoids Screen Alcohol, Quantitative EKG/Cardiology Studies: Cardiology / EKG Studies 06/28/17 08:45 EKG [ELECTROCARDIOGRAM] Stat Comment: 4 Mode Of Transportation: PORTABLE Reason For Exam: new onset seizure 06/28/17 17:00 EKG [ELECTROCARDIOGRAM] Q6H Comment: Mode Of Transportation: Reason For Exam: chest pain 06/28/17 23:00 EKG [ELECTROCARDIOGRAM] Q6H Comment: Mode Of Transportation: Reason For Exam: chest pain Review of Systems - Review of Systems All systems: reviewed and no additional remarkable complaints except - Psychiatric Additional comments: agitated, anxious, withdrawing. Critical Care Progress Note - Nutrition Nutrition: Nutrition Category Date Time Status NPO Diet [DIET] Diets 06/28/17 Breakfast Active Assessment/Plan (1) Alcohol withdrawal seizure Assessment and plan: 37yo M. PMHx ETOH abuse. Today had possible seizure activity with stool incontinence. Patient showing signs of alcohol withdrawal, with tremors. He has recently been having spontaneous epistaxis, melanotic stool. Yesterday he had hematemesis. Neuro: alert and agitated. Pulm: no acute issues, breathing spontaneously on room air. CV: hemodynamically stable. Hem: no acute issues, possibly hemoconcentrated. Renal: metabolic acidosis. D5W+MVI+Thiamine@100 Endo: no acute issues. GI: NPO except for meds. upper GI bleed, uncertain etiology (variceal vs ulcer) , GI consulted, possible EGD in the future. Protonix IV q12h. Order US abdomen to assess for cirrhosis and portal hypertension. ID: no acute issues. DVT proph - lovenox GI proph - protonix IV Code status - full code Critical Care Time spent 35 minutes Multi-disciplinary rounds were performed with house staff, nursing, speech therapy, respiratory therapy, pharmacy and nutrition with integrated input from the primary team/attending and other consulting services. The documented time is cumulative and includes review of patient data/exams/labs/chart review and examination of the patient on rounds and throughout the day; time is exclusive of any procedures or teaching time. Current Visit: Yes Status: Acute Priority: High
[2017-06-28 12:48] LABS: CK-MB 2.54 ng/mL (0.0-3.38)
--- NOTE | 2017-06-28 14:27 | CP.PCM.CON ---
<Jese Bernal - Last Filed: 06/28/17 14:27> History of Present Illness - History of Present Illness History of Present Illness: PGY 4 Initial GI Consult Yury Back is a 37M w/ hx of chronic ETOH use who presents to the ER after having a witnessed seizure. Pt was found to have seizures at home and bit his tongue and lips. He reports consuming 1/5 L of vodka daily. His last drink was 3 days ago. He denies any previous hospitalization for alcohol related issues. He notes having dark stools for 3-4 days last week. He denies any BRBPR, hematemesis or coffee-ground emesis. His notes that he had blood oozing from from his tongue and lips after his seizure. His hgb upon presentation was 12. He was given librium in the ER. He was started on ativan and sent to the ICU for DTs and possible GI bleed. Pt noted previous chest pain which started 1 week ago. He took ASA, because he read online that it was cardioprotective. No acute episodes of GI bleeding since admission. PMD: none PMHx: chronic alcohol abuse PSHx: denies Home Medications: Aspirin 81mg PO QD FamHx: denies SocialHx: smokes baby cigars twice a week for past 5 years; drinks a 5th of vodka daily (per he used to drink less but lately it's been a 5th of vodka daily); denies illicit drug use; unemployed; lives at home with and son ROS: 12 point ROS conducted, neg other than above Past Patient History - Past Medical History & Family History Past Medical History?: Yes - Past Social History Smoking Status: Never Smoked - CARDIAC Hx Cardiac Disorders: No - PULMONARY Hx Respiratory Disorders: No - NEUROLOGICAL Hx Neurological Disorder: No - HEENT Hx HEENT Problems: No - RENAL Hx Chronic Kidney Disease: No - ENDOCRINE/METABOLIC Hx Endocrine Disorders: No - HEMATOLOGICAL/ONCOLOGICAL Hx Blood Disorders: No - INTEGUMENTARY Hx Dermatological Problems: No - MUSCULOSKELETAL/RHEUMATOLOGICAL Hx Falls: Yes - GASTROINTESTINAL Hx Gastrointestinal Disorders: No - GENITOURINARY/GYNECOLOGICAL Hx Genitourinary Disorders: No - PSYCHIATRIC Hx Substance Use: No - SURGICAL HISTORY Hx Surgeries: No - ANESTHESIA Hx Anesthesia: No Meds Allergies/Adverse Reactions: Allergies Allergy/AdvReac Type Severity Reaction Status Date / Time No Known Allergies Allergy Unverified 06/28/17 05:17 - Medications Medications: Current Medications Chlordiazepoxide (Librium) 25 mg PO Q8 [facility] Clonidine HCl (Catapres) 0.1 mg PO Q4H PRN PRN Reason: Symptoms of alcohol withdrawl Last Admin: 06/28/17 09:09 Dose: 0.1 mg Folic Acid 1 mg/ Thiamine HCl 100 mg/ Multivitamins/Vitamin C 10 ml/ Sodium Chloride 1,011.2 mls @ 100 mls/hr IV DAILY [facility] Stop: 07/01/17 09:01 Last Admin: 06/28/17 09:15 Dose: 100 mls/hr Sodium Chloride (Sodium Chloride 0.9%) 1,000 mls @ 100 mls/hr IV .Q10H [facility] Last Admin: 06/28/17 09:19 Dose: Not Given Lorazepam (Ativan) 2 mg IVP Q4H PRN PRN Reason: Symptoms of alcohol w/d if npo Ondansetron HCl (Zofran Inj) 4 mg IVP Q6H PRN PRN Reason: Nausea/Vomiting Pantoprazole Sodium (Protonix Inj) 40 mg IVP Q12H [facility] Last Admin: 06/28/17 09:18 Dose: 40 mg Physical Exam - Constitutional Appears: Well, No Acute Distress - Head Exam Head Exam: ATRAUMATIC, NORMOCEPHALIC - Eye Exam Eye Exam: Normal appearance Pupil Exam: NORMAL ACCOMODATION - ENT Exam ENT Exam: Mucous Membranes Moist, Normal Exam - Neck Exam Neck exam: Positive for: Normal Inspection - Respiratory Exam Respiratory Exam: Clear to Auscultation Bilateral, NORMAL BREATHING PATTERN. absent: Prolonged Expiratory Phase, Rales, Rhonchi, Wheezes - Cardiovascular Exam Cardiovascular Exam: REGULAR RHYTHM, +S1, +S2 - GI/Abdominal Exam GI & Abdominal Exam: Normal Bowel Sounds, Soft. absent: Guarding, Hernia, Hyperactive Bowel Sounds, Rebound, Rigid - Rectal Exam Rectal Exam: NORMAL INSPECTION. absent: Black Stool, Bloody Stool - Extremities Exam Extremities exam: Negative for: calf tenderness, joint swelling - Neurological Exam Neurological exam: Alert, Oriented x3 - Psychiatric Exam Psychiatric exam: Normal Affect, Normal Mood - Skin Skin Exam: Intact, Normal Color, Warm Results - Vital Signs Recent Vital Signs: Last Vital Signs Temp 98.1 F 06/28/17 12:00 Pulse 81 06/28/17 13:53 Resp 12 06/28/17 13:53 BP 122/79 06/28/17 13:53 Pulse Ox 98 06/28/17 13:53 - Labs Result Diagrams: 06/28/17 05:42 06/28/17 05:42 Labs: Laboratory Results - last 24 hr 06/28/17 06/28/17 06/28/17 05:42 05:42 06:20 WBC 6.1 RBC 4.04 L Hgb 12.4 Hct 37.3 MCV 92.5 MCH 30.8 MCHC 33.3 RDW 14.4 Plt Count 117 L MPV 9.8 Neut % (Auto) 44.8 L Lymph % (Auto) 41.5 H [place] % (Auto) 12.3 H Eos % (Auto) 0.0 Baso % (Auto) 1.4 Neut # (Auto) 2.7 Lymph # (Auto) 2.5 [place] # (Auto) 0.8 Eos # (Auto) 0.0 Baso # (Auto) 0.1 Differential Comment PT INR Puncture Site pCO2 pO2 HCO3 ABG pH ABG Total CO2 ABG O2 Saturation ABG Base Excess [place]iago Test ABG Potassium A-a O2 Difference Respiratory Index Glucose Lactate Liter Flow FiO2 Sodium 141 Potassium 3.7 Chloride 95 L Carbon Dioxide 14 L Anion Gap 35 H BUN 6 L Creatinine 0.8 Est GFR ( Amer) > 60 Est GFR (Non-Af Amer) > 60 Random Glucose 151 H Calcium 9.1 Magnesium 1.5 L Total Bilirubin 1.3 AST 241 H ALT 84 H Alkaline Phosphatase 126 Total Creatine Kinase CK-MB (Mass) Troponin I Total Protein 10.3 H Albumin 5.0 Globulin 5.3 H Albumin/Globulin Ratio 0.9 L Amylase 119 H Lipase 123 Arterial Blood Potassium Urine Color Yellow Urine Clarity Hazy Urine pH 6.0 Ur Specific [place] 1.019 Urine Protein 3+ H Urine Glucose (UA) 1+ H Urine Ketones 1+ H Urine Blood 1+ H Urine Nitrate Negative Urine Bilirubin Negative Urine Urobilinogen Normal Ur Leukocyte Esterase Neg Urine WBC (Auto) 4 Urine RBC (Auto) 7 H Ur Squamous Epith Cells 1 Hyaline Casts 6-10 H Stool Occult Blood Urine Opiates Screen Urine Methadone Screen Ur Barbiturates Screen Ur Phencyclidine Scrn Ur Amphetamines Screen U Benzodiazepines Scrn U Oth Cocaine Metabols U Cannabinoids Screen Alcohol, Quantitative < 10 06/28/17 06/28/17 06/28/17 06:20 09:11 09:28 WBC RBC Hgb Hct MCV MCH MCHC RDW Plt Count MPV Neut % (Auto) Lymph % (Auto) [place] % (Auto) Eos % (Auto) Baso % (Auto) Neut # (Auto) Lymph # (Auto) [place] # (Auto) Eos # (Auto) Baso # (Auto) Differential Comment PT 12.0 INR 1.1 Puncture Site pCO2 pO2 HCO3 ABG pH ABG Total CO2 ABG O2 Saturation ABG Base Excess [place] Test ABG Potassium A-a O2 Difference Respiratory Index Glucose Lactate Liter Flow FiO2 Sodium Potassium Chloride Carbon Dioxide Anion Gap BUN Creatinine Est GFR ( Amer) Est GFR (Non-Af Amer) Random Glucose Calcium Magnesium Total Bilirubin AST ALT Alkaline Phosphatase Total Creatine Kinase CK-MB (Mass) Troponin I Total Protein Albumin Globulin Albumin/Globulin Ratio Amylase Lipase Arterial Blood Potassium Urine Color Urine Clarity Urine pH Ur Specific [place] Urine Protein Urine Glucose (UA) Urine Ketones Urine Blood Urine Nitrate Urine Bilirubin Urine Urobilinogen Ur Leukocyte Esterase Urine WBC (Auto) Urine RBC (Auto) Ur Squamous Epith Cells Hyaline Casts Stool Occult Blood Negative Urine Opiates Screen Negative Urine Methadone Screen Negative Ur Barbiturates Screen Negative Ur Phencyclidine Scrn Negative Ur Amphetamines Screen Negative U Benzodiazepines Scrn Negative U Oth Cocaine Metabols Negative U Cannabinoids Screen Negative Alcohol, Quantitative 06/28/17 06/28/17 09:52 12:13 WBC RBC Hgb Hct MCV MCH MCHC RDW Plt Count MPV Neut % (Auto) Lymph % (Auto) [place] % (Auto) Eos % (Auto) Baso % (Auto) Neut # (Auto) Lymph # (Auto) [place] # (Auto) Eos # (Auto) Baso # (Auto) Differential Comment PT INR Puncture Site Rba pCO2 36 pO2 127 H HCO3 26.5 ABG pH 7.46 H ABG Total CO2 26.7 ABG O2 Saturation 99.8 H ABG Base Excess 2.0 Thiago Test Na ABG Potassium 3.0 L A-a O2 Difference 42.0 Respiratory Index 0.3 Glucose 98 Lactate 0.7 Liter Flow 3.0 FiO2 30.0 Sodium 136.0 Potassium Chloride 103.0 Carbon Dioxide Anion Gap BUN Creatinine Est GFR ( Amer) Est GFR (Non-Af Amer) Random Glucose Calcium Magnesium Total Bilirubin AST ALT Alkaline Phosphatase Total Creatine Kinase 476 H CK-MB (Mass) 2.54 Troponin I < 0.0120 Total Protein Albumin Globulin Albumin/Globulin Ratio Amylase Lipase Arterial Blood Potassium 3.0 L Urine Color Urine Clarity Urine pH Ur Specific [place] Urine Protein Urine Glucose (UA) Urine Ketones Urine Blood Urine Nitrate Urine Bilirubin Urine Urobilinogen Ur Leukocyte Esterase Urine WBC (Auto) Urine RBC (Auto) Ur Squamous Epith Cells Hyaline Casts Stool Occult Blood Urine Opiates Screen Urine Methadone Screen Ur Barbiturates Screen Ur Phencyclidine Scrn Ur Amphetamines Screen U Benzodiazepines Scrn U Oth Cocaine Metabols U Cannabinoids Screen Alcohol, Quantitative Assessment & Plan - Assessment and Plan (Free Text) Assessment: Yury Back is a 37M w/ hx of chronic ETOH abuse who presented to the ED after a witnessed DTs and seizures. Elevated LFTs likely 2/2 alcoholic ETOH, r/o viral etiology and autoimmune ETOH abuse Anemia DT Alcohol withdrawl Plan: -keep NPO -rectal exam was neg with no evidence of melena or BRB -continue protonix 40mg IV BID -withdrawl protocol as per primary medicine team, agree with ativan -DF is 1.5, no indication for steroids -will likely do an EGD on friday -advised ETOH cessation -maintain 2 large bore IVs type and screen transfuse if hgb < 7 or symptomatic -will send for viral seriologies and autoimmune markers -replete electrolytes including Mg, watch for refeeding sydrome D/W Dr. haile <Yoon Haile - Last Filed: 06/28/17 16:26> Meds - Medications Medications: Current Medications Chlordiazepoxide (Librium) 25 mg PO Q8 [facility] Last Admin: 06/28/17 14:50 Dose: 25 mg Clonidine HCl (Catapres) 0.1 mg PO Q4H PRN PRN Reason: Symptoms of alcohol withdrawl Last Admin: 06/28/17 09:09 Dose: 0.1 mg Folic Acid 1 mg/ Thiamine HCl 100 mg/ Multivitamins/Vitamin C 10 ml/ Sodium Chloride 1,011.2 mls @ 100 mls/hr IV DAILY [facility] Stop: 07/01/17 09:01 Last Admin: 06/28/17 09:15 Dose: 100 mls/hr Sodium Chloride (Sodium Chloride 0.9%) 1,000 mls @ 100 mls/hr IV .Q10H [facility] Last Admin: 06/28/17 16:17 Dose: 100 mls/hr Lorazepam (Ativan) 2 mg IVP Q4H PRN PRN Reason: Symptoms of alcohol w/d if npo Ondansetron HCl (Zofran Inj) 4 mg IVP Q6H PRN PRN Reason: Nausea/Vomiting Pantoprazole Sodium (Protonix Inj) 40 mg IVP Q12H [facility] Last Admin: 06/28/17 09:18 Dose: 40 mg Results - Vital Signs Recent Vital Signs: Last Vital Signs Temp 99.3 F 06/28/17 16:00 Pulse 75 06/28/17 15:53 Resp 13 06/28/17 15:53 BP 117/70 06/28/17 15:53 Pulse Ox 99 06/28/17 15:53 - Labs Result Diagrams: 06/28/17 05:42 06/28/17 05:42 Labs: Laboratory Results - last 24 hr 06/28/17 06/28/17 06/28/17 05:42 05:42 06:20 WBC 6.1 RBC 4.04 L Hgb 12.4 Hct 37.3 MCV 92.5 MCH 30.8 MCHC 33.3 RDW 14.4 Plt Count 117 L MPV 9.8 Neut % (Auto) 44.8 L Lymph % (Auto) 41.5 H [place] % (Auto) 12.3 H Eos % (Auto) 0.0 Baso % (Auto) 1.4 Neut # (Auto) 2.7 Lymph # (Auto) 2.5 [place] # (Auto) 0.8 Eos # (Auto) 0.0 Baso # (Auto) 0.1 Differential Comment PT INR Puncture Site pCO2 pO2 HCO3 ABG pH ABG Total CO2 ABG O2 Saturation ABG Base Excess [place] Test ABG Potassium A-a O2 Difference Respiratory Index Glucose Lactate Liter Flow FiO2 Sodium 141 Potassium 3.7 Chloride 95 L Carbon Dioxide 14 L Anion Gap 35 H BUN 6 L Creatinine 0.8 Est GFR ( Amer) > 60 Est GFR (Non-Af Amer) > 60 Random Glucose 151 H Calcium 9.1 Magnesium 1.5 L Total Bilirubin 1.3 AST 241 H ALT 84 H Alkaline Phosphatase 126 Total Creatine Kinase CK-MB (Mass) Troponin I Total Protein 10.3 H Albumin 5.0 Globulin 5.3 H Albumin/Globulin Ratio 0.9 L Amylase 119 H Lipase 123 Arterial Blood Potassium Urine Color Yellow Urine Clarity Hazy Urine pH 6.0 Ur Specific [place] 1.019 Urine Protein 3+ H Urine Glucose (UA) 1+ H Urine Ketones 1+ H Urine Blood 1+ H Urine Nitrate Negative Urine Bilirubin Negative Urine Urobilinogen Normal Ur Leukocyte Esterase Neg Urine WBC (Auto) 4 Urine RBC (Auto) 7 H Ur Squamous Epith Cells 1 Hyaline Casts 6-10 H Stool Occult Blood Urine Opiates Screen Urine Methadone Screen Ur Barbiturates Screen Ur Phencyclidine Scrn Ur Amphetamines Screen U Benzodiazepines Scrn U Oth Cocaine Metabols U Cannabinoids Screen Alcohol, Quantitative < 10 Hepatitis A IgM Ab Hep Bs Antigen Hep B Core IgM Ab Hepatitis C Antibody 06/28/17 06/28/17 06/28/17 06:20 09:11 09:28 WBC RBC Hgb Hct MCV MCH MCHC RDW Plt Count MPV Neut % (Auto) Lymph % (Auto) [place] % (Auto) Eos % (Auto) Baso % (Auto) Neut # (Auto) Lymph # (Auto) [place] # (Auto) Eos # (Auto) Baso # (Auto) Differential Comment PT 12.0 INR 1.1 Puncture Site pCO2 pO2 HCO3 ABG pH ABG Total CO2 ABG O2 Saturation ABG Base Excess [place] Test ABG Potassium A-a O2 Difference Respiratory Index Glucose Lactate Liter Flow FiO2 Sodium Potassium Chloride Carbon Dioxide Anion Gap BUN Creatinine Est GFR ( Amer) Est GFR (Non-Af Amer) Random Glucose Calcium Magnesium Total Bilirubin AST ALT Alkaline Phosphatase Total Creatine Kinase CK-MB (Mass) Troponin I Total Protein Albumin Globulin Albumin/Globulin Ratio Amylase Lipase Arterial Blood Potassium Urine Color Urine Clarity Urine pH Ur Specific [place] Urine Protein Urine Glucose (UA) Urine Ketones Urine Blood Urine Nitrate Urine Bilirubin Urine Urobilinogen Ur Leukocyte Esterase Urine WBC (Auto) Urine RBC (Auto) Ur Squamous Epith Cells Hyaline Casts Stool Occult Blood Negative Urine Opiates Screen Negative Urine Methadone Screen Negative Ur Barbiturates Screen Negative Ur Phencyclidine Scrn Negative Ur Amphetamines Screen Negative U Benzodiazepines Scrn Negative U Oth Cocaine Metabols Negative U Cannabinoids Screen Negative Alcohol, Quantitative Hepatitis A IgM Ab Hep Bs Antigen Hep B Core IgM Ab Hepatitis C Antibody 06/28/17 06/28/17 06/28/17 09:52 12:13 14:20 WBC RBC Hgb Hct MCV MCH MCHC RDW Plt Count MPV Neut % (Auto) Lymph % (Auto) [place] % (Auto) Eos % (Auto) Baso % (Auto) Neut # (Auto) Lymph # (Auto) [place] # (Auto) Eos # (Auto) Baso # (Auto) Differential Comment PT INR Puncture Site Rba pCO2 36 pO2 127 H HCO3 26.5 ABG pH 7.46 H ABG Total CO2 26.7 ABG O2 Saturation 99.8 H ABG Base Excess 2.0 [place]iago Test Na ABG Potassium 3.0 L A-a O2 Difference 42.0 Respiratory Index 0.3 Glucose 98 Lactate 0.7 Liter Flow 3.0 FiO2 30.0 Sodium 136.0 Potassium Chloride 103.0 Carbon Dioxide Anion Gap BUN Creatinine Est GFR ( Amer) Est GFR (Non-Af Amer) Random Glucose Calcium Magnesium Total Bilirubin AST ALT Alkaline Phosphatase Total Creatine Kinase 476 H CK-MB (Mass) 2.54 Troponin I < 0.0120 Total Protein Albumin Globulin Albumin/Globulin Ratio Amylase Lipase Arterial Blood Potassium 3.0 L Urine Color Urine Clarity Urine pH Ur Specific [place] Urine Protein Urine Glucose (UA) Urine Ketones Urine Blood Urine Nitrate Urine Bilirubin Urine Urobilinogen Ur Leukocyte Esterase Urine WBC (Auto) Urine RBC (Auto) Ur Squamous Epith Cells Hyaline Casts Stool Occult Blood Urine Opiates Screen Urine Methadone Screen Ur Barbiturates Screen Ur Phencyclidine Scrn Ur Amphetamines Screen U Benzodiazepines Scrn U Oth Cocaine Metabols U Cannabinoids Screen Alcohol, Quantitative Hepatitis A IgM Ab Negative Hep Bs Antigen Negative Hep B Core IgM Ab Negative Hepatitis C Antibody Negative Attending/Attestation - Attestation I have personally seen and examined this patient.: Yes I have fully participated in the care of the patient.: Yes I have reviewed all pertinent clinical information: Yes Notes (Text): 06/28/17 16:23 Patient seen with GI fellow. This is a 37 yr old M with history of chronic ETOH abuse who presented to the ED after a witnessed DTs and seizures. He is currently on seizure precaution. Rectal exam was neg with no evidence of melena or BRBPR. maintain 2 large bore IV and trabsfuse if Hb less than 7 g/dl. Daily MELD labs. Continue PPi. Will consider EGD on Friday. Will send for viral seriologies and autoimmune markers. Replete electrolytes including Mg, watch for refeeding sydrome
[2017-06-28 15:00] LABS: HEPATITIS B SURFACE AG Negative (NEGATIVE)
[2017-06-28 15:06] LABS: HEPATITIS A IGM NEGATIVE (NEGATIVE); HEPATITIS B CORE AB NEGATIVE (NEGATIVE)
[2017-06-28 15:18] LABS: HEPATITIS C ANTIBODY NEGATIVE (NEGATIVE)
--- NOTE | 2017-06-28 16:15 | US ---
HISTORY: assess liver pathology COMPARISON: None. TECHNIQUE: Sonographic evaluation of the abdomen. FINDINGS: LIVER: Measures 16.6 cm. Diffusely increased echogenicity of the liver parenchyma. Consistent with fatty infiltration. No mass. Smooth contour. No biliary ductal dilatation. GALLBLADDER: Unremarkable. No gallstones. COMMON BILE DUCT: Measures 4 mm. No stones. No dilatation. PANCREAS: Unremarkable as visualized. No mass. No ductal dilatation. RIGHT KIDNEY: Measures 10.2cm. Normal echogenicity. No calculus, mass, or hydronephrosis. LEFT KIDNEY: Measures 10.4cm. Normal echogenicity. No calculus, mass, or hydronephrosis. SPLEEN: Normal in size and contour. No mass. AORTA: No aneurysmal dilatation. IVC: Unremarkable. OTHER FINDINGS: None. IMPRESSION: Limited portable examination. Fatty infiltration of the liver. No evidence of biliary obstruction. No additional abnormality.
[2017-06-28 17:31] LABS: INR 1.1; PROTHROMBIN TIME 12.6 SECONDS (9.7-12.2)
[2017-06-28 17:36] LABS: IRON 334 ug/dL (49-181)
[2017-06-28 17:46] LABS: % IRON SATURATION 99 (20-55); TOTAL IRON BINDING CAPACITY 337 ug/dL (250-450)
[2017-06-28 18:00] LABS: CK-MB 2.41 ng/mL (0.0-3.38)
[2017-06-28 18:14] LABS: FERRITIN 71.9 ng/mL
[2017-06-28 23:12] LABS: CK-MB 1.77 ng/mL (0.0-3.38)
[2017-06-29] MEDS: Sodium Chloride 0.9% 1,000 ML IV SCH ×2 (01:43→04:55)
[2017-06-29 06:42] LABS: BASO % 1.4 % (0.0-2.0); EOS % 0.9 % (0.0-4.0); HEMOGLOBIN 10.6 g/dL (12.0-18.0); LYMPH % 26.3 % (20.0-40.0); MEAN CELL VOLUME 91.8 fL (80.0-94.0); MEAN CORPUSCULAR HEMOGLOBIN 30.6 pg (27.0-31.0); MEAN CORPUSCULAR HGB CONC 33.3 g/dL (33.0-37.0); MONO # 0.5 K/uL (0.0-0.8); MONO % 13.7 % (0.0-10.0); NEUT # 2.1 K/uL (1.8-7.0); NEUT % 57.7 % (50.0-75.0); NRBC % 0.1 % (0.0-2.0); RBC 3.48 Mil/uL (4.40-5.90); RED CELL DISTRIBUTION WIDTH 14.8 % (11.5-14.5); WHITE BLOOD COUNT 3.6 K/uL (4.8-10.8)
[2017-06-29 06:58] LABS: ALB/GLOB RATIO 1.1 (1.0-2.1); ALBUMIN 4.1 g/dL (3.5-5.0); ALT/SGPT 76 U/L (21-72); AST/SGOT 214 U/L (17-59); BLOOD UREA NITROGEN 2 mg/dL (9-20); CALCIUM 8.6 mg/dl (8.6-10.4); GFR AFRICAN-AMERICAN > 60; GFR NON-AFRICAN AMERICAN > 60; HDL CHOLESTEROL 71 mg/dL (30-70)
[2017-06-29 07:08] LABS: LDL CHOLESTEROL 263 mg/dL (0-129)
--- NOTE | 2017-06-29 08:40 | CP.PCM.PN ---
Subjective - Date & Time of Evaluation Date of Evaluation: 06/29/17 Time of Evaluation: 08:35 - Subjective Subjective: Medical Attending note: Patient seen and examined at bedside. Patient denies headache, denies chest pain, denies cough, denies abdominal pain , denies nausea, denies vomitting, denies hematochzia. Patient reports he is hungry and wants real food. Objective - Vital Signs/Intake and Output Vital Signs (last 24 hours): Temp Pulse Resp BP Pulse Ox 97.3 F L 72 18 132/72 97 06/29/17 00:00 06/29/17 07:00 06/29/17 07:00 06/29/17 06:53 06/29/17 07:00 Intake and Output: 06/29/17 06/29/17 06:59 18:59 Intake Total 1625 125 Output Total 2500 Balance -875 125 - Medications Medications: Current Medications Chlordiazepoxide (Librium) 25 mg PO Q8 [facility] Last Admin: 06/29/17 05:34 Dose: 25 mg Clonidine HCl (Catapres) 0.1 mg PO Q4H PRN PRN Reason: Symptoms of alcohol withdrawl Last Admin: 06/28/17 09:09 Dose: 0.1 mg Folic Acid 1 mg/ Thiamine HCl 100 mg/ Multivitamins/Vitamin C 10 ml/ Sodium Chloride 1,011.2 mls @ 100 mls/hr IV DAILY [facility] Stop: 07/01/17 09:01 Last Admin: 06/28/17 09:15 Dose: 100 mls/hr Sodium Chloride (Sodium Chloride 0.9%) 1,000 mls @ 125 mls/hr IV .Q8H [facility] Last Admin: 06/29/17 04:55 Dose: Not Given Lorazepam (Ativan) 2 mg IVP Q4H PRN PRN Reason: Symptoms of alcohol w/d if npo Ondansetron HCl (Zofran Inj) 4 mg IVP Q6H PRN PRN Reason: Nausea/Vomiting Pantoprazole Sodium (Protonix Inj) 40 mg IVP Q12H [facility] Last Admin: 06/28/17 21:39 Dose: 40 mg - Labs Labs: 06/29/17 06:34 06/29/17 06:34 PT 12.6 SECONDS (9.7-12.2) H 06/28/17 17:22 INR 1.1 06/28/17 17:22 - Constitutional Appears: Non-toxic, No Acute Distress - Head Exam Head Exam: NORMAL INSPECTION Additional comments: mild upper extremities tremors, no tongue fasiculations noted - Eye Exam Eye Exam: EOMI, PERRL. absent: Nystagmus, Scleral icterus Pupil Exam: NORMAL ACCOMODATION - ENT Exam ENT Exam: Mucous Membranes Moist Additional comments: Tongue (right aspect, swollen, bite laceration, clotted blood) - Neck Exam Neck Exam: absent: Normal Inspection - Respiratory Exam Respiratory Exam: Clear to Ausculation Bilateral, NORMAL BREATHING PATTERN. absent: Rales, Rhonchi, Wheezes - Cardiovascular Exam Cardiovascular Exam: REGULAR RHYTHM, +S1, +S2 - GI/Abdominal Exam GI & Abdominal Exam: Soft, Normal Bowel Sounds. absent: Distended, Firm, Guarding, Rigid, Tenderness, Rebound Additional comments: negative Lam's sign - Extremities Exam Extremities Exam: absent: Pedal Edema, Tenderness - Back Exam Back Exam: absent: CVA tenderness (L), CVA tenderness (R) - Neurological Exam Neurological Exam: Alert, Awake, CN II-XII Intact (except CN I not tested), Oriented x3 - Psychiatric Exam Psychiatric exam: Normal Affect, Normal Mood - Skin Skin Exam: Dry, Intact, Normal Color, Warm. absent: Petechiae Assessment and Plan (1) Alcohol withdrawal seizure Status: Acute (2) Chest pain Status: Resolved (3) Epistaxis Status: Chronic (4) Nausea & vomiting Status: Resolved (5) Thrombocytopenia Status: Acute (6) Upper GI bleed Status: Suspected (7) Prophylactic measure Status: Acute Attending/Attestation - Attestation I have personally seen and examined this patient.: Yes I have fully participated in the care of the patient.: Yes I have reviewed all pertinent clinical information, including history, physical exam and plan: Yes Notes (Text): (1) Alcohol withdrawal seizure Chronic Alcohol Abuse Metabolic Acidosis (stable) Assessment and Plan: * Upgraded to ICU given risk of delirium tremens on admisison * Patient reports last drink 3-4 days ago (drinking hx of multiple years) * Family witnessed tonic-clonic seizure lasting seconds that included tongue biting this morning 4:30AM day of admission; first time seizure, no prior history of alcohol withdrawal seizure * Aspiration precautions * Seizure precautions * Alcohol withdrawal assessments Q1H/Neuro checks Q4H * Librium 25mg PO Q8H * Clonidine 0.1mg PO Q4H PRN symptoms of alcohol withdrawal * Ativan 2mg IVP Q 4H PRN symptoms of alcohol withdrawal * Banana bag * NS @ 100cc/hr * Imaging: CT head w/o contrast: no evidence of an acute abnormality Status: Acute Priority: High (2) Upper GI bleed Assessment and Plan: * GI consult, Dr Ricardo money laundering investigator-->discussed with GI and GI fellow who will see the patient; help appreciated * Risk Factors: alcohol, aspirin * Monitor CBC * Protonix 40mg IV Q12H * Follow-up to determine if patient requires EGD on Friday Status: Acute Priority: High (3) Nausea & vomiting Assessment and Plan: * Likely secondary to alcohol withdrawal * Zofran 4mg IV Q6H PRN for nausea--->no Prolonged QT noted on EKG * Resolved (4) Epistaxis Assessment and Plan: * Daily 6 month hx of epistaxis * Takes daily ASA for chest pain for last 6 months * Unclear if liver cirrhotic/alcoholic disease * No episodes over night * Patient is thrombocytopenia; and tongue laceration from the seizure Status: Chronic Priority: High (5) Alcoholic Hepatitis Fatty infiltration of the Liver Assessment and Plan: * Platelets on admission: 117 * AST/ALT on admission: 241/84 * Downtrending * Secondary to aspirin and alcohol * Hepatitis panel: negative * Abdominal US (06/28/17): limited portable examination. Fatty of infiltration of the liver. No evidence of biliary obstruction. No additional abnormality Status: Acute Priority: High (6) Pancytopenia Assessment and Plan: * likely secondary to alcohol effect on bone marrow * Patient is on banana bag and and IV fluids * Patient has blood transfusion consent in chart if needed * Patient has thrombocytopenia (is on protonix 40mg IV Q12) monitor platelets Status: Acute Priority: High (7) Chest pain (resolved) Assessment and Plan: * ARELI X 3 negative * Lipid panel: cholestrol 359, LDL: 263, HDL: 71, T (abnormal) * TSH: 1.11 * 1st and 2nd EKG: NSR and 3rd is artifact Status: Acute Priority: Medium (8) Prophylactic measure Assessment and Plan: * Contraindication to VTE -->thrombocytopenia, possible upper GI bleed * SCDs b/l * Protonix 40mg IV Q12H * liquid diet * Aspiration precautions * Seizure precautions Status: Acute Priority: Low
[2017-06-29] MEDS: Folic Acid 1 MG, Thiamine 100 MG, Multivitamin (MVI) 10 ML in Sodium Chloride 0.9% 1,00... IV SCH ×2 (09:46→09:48)
[2017-06-29] MEDS ORDERED: Sodium Chloride 0.9% 1,000 ML IV SCH (11:16)
[2017-06-29] MEDS ORDERED: Folic Acid 1 MG, Thiamine 100 MG, Multivitamin (MVI) 10 ML in Dextrose 5% In Water 1,00... IV SCH (11:30)
[2017-06-29] MEDS ORDERED: Folic Acid 1 MG, Multivitamin (MVI) 10 ML in Dextrose 5% In Water 1,000 ML IV SCH (11:45)
--- NOTE | 2017-06-29 12:33 | CP.PCM.PN ---
<Jese Bernal - Last Filed: 06/29/17 12:35> Subjective - Date & Time of Evaluation Date of Evaluation: 06/29/17 Time of Evaluation: 12:00 - Subjective Subjective: PGY4 GI Follow Up Pt seen and examined bedside No complaints No GI bleeds overnight tolerating diet +BM, denied any blood ROS: 12 point ROS conducted neg other than above Objective - Vital Signs/Intake and Output Vital Signs (last 24 hours): Temp Pulse Resp BP Pulse Ox 98.1 F 88 16 122/72 96 06/29/17 12:00 06/29/17 11:52 06/29/17 11:52 06/29/17 11:52 06/29/17 11:52 Intake and Output: 06/29/17 06/29/17 06:59 18:59 Intake Total 1625 1515 Output Total 2500 Balance -875 1515 - Medications Medications: Current Medications Chlordiazepoxide (Librium) 25 mg PO Q8 [facility] Last Admin: 06/29/17 05:34 Dose: 25 mg Clonidine HCl (Catapres) 0.1 mg PO Q4H PRN PRN Reason: Symptoms of alcohol withdrawl Last Admin: 06/28/17 09:09 Dose: 0.1 mg Sodium Chloride (Sodium Chloride 0.9%) 1,000 mls @ 75 mls/hr IV .[id number] [facility] Folic Acid 1 mg/ Multivitamins (/Vitamin C 10 ml/ Dextrose) 1,010.2 mls @ 100 mls/hr IV Q24H [facility] Stop: 06/30/17 21:52 Last Admin: 06/29/17 12:30 Dose: 100 mls/hr Lorazepam (Ativan) 2 mg IVP Q4H PRN PRN Reason: Symptoms of alcohol w/d if npo Ondansetron HCl (Zofran Inj) 4 mg IVP Q6H PRN PRN Reason: Nausea/Vomiting Pantoprazole Sodium (Protonix Inj) 40 mg IVP Q12H [facility] Last Admin: 06/29/17 09:46 Dose: 40 mg Thiamine HCl (Vitamin B1 Tab) 100 mg PO DAILY [facility] Last Admin: 06/29/17 12:29 Dose: 100 mg - Labs Labs: 06/29/17 06:34 06/29/17 06:34 PT 12.6 SECONDS (9.7-12.2) H 06/28/17 17:22 INR 1.1 06/28/17 17:22 - Constitutional Appears: Well, No Acute Distress - Head Exam Head Exam: ATRAUMATIC, NORMOCEPHALIC - Eye Exam Eye Exam: Scleral icterus - ENT Exam ENT Exam: Mucous Membranes Moist, Normal Exam - Neck Exam Neck Exam: Normal Inspection - Respiratory Exam Respiratory Exam: Clear to Ausculation Bilateral, NORMAL BREATHING PATTERN. absent: Rales, Rhonchi, Wheezes, Respiratory Distress - Cardiovascular Exam Cardiovascular Exam: REGULAR RHYTHM, +S1, +S2 - GI/Abdominal Exam GI & Abdominal Exam: Soft, Normal Bowel Sounds. absent: Guarding, Rigid, Tenderness, Organomegaly - Extremities Exam Extremities Exam: absent: Joint Swelling, Pedal Edema - Neurological Exam Neurological Exam: Alert, Awake, Oriented x3 - Psychiatric Exam Psychiatric exam: Normal Affect, Normal Mood Assessment and Plan - Assessment and Plan (Free Text) Assessment: Yury Back is a 37M w/ hx of chronic ETOH abuse who presented to the ED after a witnessed DTs and seizures. Elevated LFTs likely 2/2 alcoholic hepatitis, r/o autoimmune ETOH abuse Anemia DT Alcohol withdrawl Plan: -continue protonix 40mg IV BID -withdrawl protocol as per primary medicine team, agree with ativan -advised ETOH cessation -maintain 2 large bore IVs -transfuse if hgb < 7 or symptomatic -autoimmune markers -Acute viral hep panel negative -replete electrolytes including Mg, watch for refeeding sydrome -clears for now, NPO past midnight for EGD tomorrow D/W Dr. haile <Yoon Haile - Last Filed: 06/29/17 15:27> Objective - Vital Signs/Intake and Output Vital Signs (last 24 hours): Temp Pulse Resp BP Pulse Ox 98.1 F 88 16 122/72 96 06/29/17 12:00 06/29/17 11:52 06/29/17 11:52 06/29/17 11:52 06/29/17 11:52 Intake and Output: 06/29/17 06/29/17 06:59 18:59 Intake Total 1625 2595 Output Total 7749 1700 Balance -875 895 - Medications Medications: Current Medications Chlordiazepoxide (Librium) 25 mg PO Q8 [facility] Last Admin: 06/29/17 13:40 Dose: 25 mg Clonidine HCl (Catapres) 0.1 mg PO Q4H PRN PRN Reason: Symptoms of alcohol withdrawl Last Admin: 06/28/17 09:09 Dose: 0.1 mg Sodium Chloride (Sodium Chloride 0.9%) 1,000 mls @ 75 mls/hr IV .[id number] [facility] Folic Acid 1 mg/ Multivitamins (/Vitamin C 10 ml/ Dextrose) 1,010.2 mls @ 100 mls/hr IV Q24H [facility] Stop: 06/30/17 21:52 Last Admin: 06/29/17 12:30 Dose: 100 mls/hr Lorazepam (Ativan) 2 mg IVP Q4H PRN PRN Reason: Symptoms of alcohol w/d if npo Ondansetron HCl (Zofran Inj) 4 mg IVP Q6H PRN PRN Reason: Nausea/Vomiting Pantoprazole Sodium (Protonix Inj) 40 mg IVP Q12H [facility] Last Admin: 06/29/17 09:46 Dose: 40 mg Thiamine HCl (Vitamin B1 Tab) 100 mg PO DAILY [facility] Last Admin: 06/29/17 12:29 Dose: 100 mg - Labs Labs: 06/29/17 06:34 06/29/17 06:34 PT 12.6 SECONDS (9.7-12.2) H 06/28/17 17:22 INR 1.1 06/28/17 17:22 Attending/Attestation - Attestation I have personally seen and examined this patient.: Yes I have fully participated in the care of the patient.: Yes I have reviewed all pertinent clinical information, including history, physical exam and plan: Yes Notes (Text): 06/29/17 15:26 Patient seen with GI fellow. This is a 37 yr old M with history of chronic ETOH abuse who presented to the ED after a witnessed DTs and seizures. He is currently on seizure precaution. Rectal exam was neg with no evidence of melena or BRBPR. maintain 2 large bore IV and transfuse if Hb less than 7 g/dl. Daily MELD labs. Continue PPI. EGD on Friday. Will send for viral seriologies and autoimmune markers. Replete electrolytes including Mg, watch for refeeding sydrome. NPo past midnight. Can have clear liquid diet today
[2017-06-29 17:20] VITALS: RESP 20
[2017-06-30 06:47] LABS: HEMOGLOBIN 11.5 g/dL (12.0-18.0); MEAN CELL VOLUME 91.4 fL (80.0-94.0); MEAN CORPUSCULAR HEMOGLOBIN 30.8 pg (27.0-31.0); MEAN CORPUSCULAR HGB CONC 33.7 g/dL (33.0-37.0); MEAN PLATELET VOLUME 9.6 fL (7.2-11.7); RBC 3.73 Mil/uL (4.40-5.90); RED CELL DISTRIBUTION WIDTH 14.6 % (11.5-14.5); WHITE BLOOD COUNT 4.7 K/uL (4.8-10.8)
[2017-06-30 06:56] LABS: INR 1.1; PROTHROMBIN TIME 12.1 SECONDS (9.7-12.2)
[2017-06-30 07:18] VITALS: BP 130/86; PULSE 73; TEMP 98.9; O2SAT 98
[2017-06-30 07:48] LABS: ALB/GLOB RATIO 1.1 (1.0-2.1); ALBUMIN 4.7 g/dL (3.5-5.0); ALT/SGPT 101 U/L (21-72); AST/SGOT 289 U/L (17-59); BLOOD UREA NITROGEN 2 mg/dL (9-20); CALCIUM 9.3 mg/dl (8.6-10.4); GFR AFRICAN-AMERICAN > 60; GFR NON-AFRICAN AMERICAN > 60
--- NOTE | 2017-06-30 08:01 | CP.PCM.PN ---
Subjective - Date & Time of Evaluation Date of Evaluation: 06/30/17 Time of Evaluation: 08:00 Objective - Vital Signs/Intake and Output Vital Signs (last 24 hours): Temp Pulse Resp BP Pulse Ox 98.9 F 73 20 130/86 98 06/30/17 07:17 06/30/17 07:17 06/30/17 07:17 06/30/17 07:17 06/30/17 07:17 Intake and Output: 06/30/17 06/30/17 06:59 18:59 Intake Total 650 Balance 650 - Medications Medications: Current Medications Chlordiazepoxide (Librium) 25 mg PO Q8 [facility] Last Admin: 06/30/17 05:35 Dose: 25 mg Clonidine HCl (Catapres) 0.1 mg PO Q4H PRN PRN Reason: Symptoms of alcohol withdrawl Last Admin: 06/28/17 09:09 Dose: 0.1 mg Sodium Chloride (Sodium Chloride 0.9%) 1,000 mls @ 75 mls/hr IV .[id number] [facility] Last Admin: 06/30/17 00:31 Dose: 75 mls/hr Folic Acid 1 mg/ Multivitamins (/Vitamin C 10 ml/ Dextrose) 1,010.2 mls @ 100 mls/hr IV Q24H [facility] Stop: 06/30/17 21:52 Last Admin: 06/29/17 12:30 Dose: 100 mls/hr Lorazepam (Ativan) 2 mg IVP Q4H PRN PRN Reason: Symptoms of alcohol w/d if npo Ondansetron HCl (Zofran Inj) 4 mg IVP Q6H PRN PRN Reason: Nausea/Vomiting Pantoprazole Sodium (Protonix Inj) 40 mg IVP Q12H [facility] Last Admin: 06/29/17 22:08 Dose: 40 mg Thiamine HCl (Vitamin B1 Tab) 100 mg PO DAILY [facility] Last Admin: 06/29/17 12:29 Dose: 100 mg - Labs Labs: 06/30/17 06:39 06/30/17 06:39 PT 12.1 SECONDS (9.7-12.2) 06/30/17 06:39 INR 1.1 06/30/17 06:39
--- NOTE | 2017-06-30 10:20 | CP.PCM.DIS ---
<Charissa Fields - Last Filed: 06/30/17 17:53> Provider - Provider Date of Admission: 06/28/17 07:58 Attending physician: Frances Mas MD Consults: GI: Dr. Ricardo Critical carE: Dr. Christian Time Spent in preparation of Discharge (in minutes): 45 Hospital Course - Lab Results Lab Results: Micro Results 06/28/17 10:04 Nose MRSA Culture (Admit) - Final MRSA NOT DETECTED Most Recent Lab Values WBC 4.7 K/uL (4.8-10.8) L 06/30/17 06:39 RBC 3.73 Mil/uL (4.40-5.90) L 06/30/17 06:39 Hgb 11.5 g/dL (12.0-18.0) L 06/30/17 06:39 Hct 34.1 % (35.0-51.0) L 06/30/17 06:39 MCV 91.4 fL (80.0-94.0) 06/30/17 06:39 MCH 30.8 pg (27.0-31.0) 06/30/17 06:39 MCHC 33.7 g/dL (33.0-37.0) 06/30/17 06:39 RDW 14.6 % (11.5-14.5) H 06/30/17 06:39 Plt Count 80 K/uL (130-400) L 06/30/17 06:39 MPV 9.6 fL (7.2-11.7) 06/30/17 06:39 Neut % (Auto) 57.7 % (50.0-75.0) 06/29/17 06:34 Lymph % (Auto) 26.3 % (20.0-40.0) 06/29/17 06:34 [place] % (Auto) 13.7 % (0.0-10.0) H 06/29/17 06:34 Eos % (Auto) 0.9 % (0.0-4.0) 06/29/17 06:34 Baso % (Auto) 1.4 % (0.0-2.0) 06/29/17 06:34 Neut # (Auto) 2.1 K/uL (1.8-7.0) 06/29/17 06:34 Lymph # (Auto) 1.0 K/uL (1.0-4.3) 06/29/17 06:34 [place] # (Auto) 0.5 K/uL (0.0-0.8) 06/29/17 06:34 Eos # (Auto) 0.0 K/uL (0.0-0.7) 06/29/17 06:34 Baso # (Auto) 0.0 K/uL (0.0-0.2) 06/29/17 06:34 Differential Comment 06/28/17 05:42 PT 12.1 SECONDS (9.7-12.2) 06/30/17 06:39 INR 1.1 06/30/17 06:39 Puncture Site Rba 06/28/17 09:52 pCO2 36 mm/Hg (35-45) 06/28/17 09:52 pO2 127 mm/Hg (80-100) H 06/28/17 09:52 HCO3 26.5 mmol/L (21-28) 06/28/17 09:52 ABG pH 7.46 (7.35-7.45) H 06/28/17 09:52 ABG Total CO2 26.7 mmol/L (22-28) 06/28/17 09:52 ABG O2 Saturation 99.8 % (95-98) H 06/28/17 09:52 ABG Base Excess 2.0 mmol/L (-2.0-3.0) 06/28/17 09:52 Thiago Test Na 06/28/17 09:52 ABG Potassium 3.0 mmol/L (3.6-5.2) L 06/28/17 09:52 A-a O2 Difference 42.0 mm/Hg 06/28/17 09:52 Respiratory Index 0.3 06/28/17 09:52 Sodium 136.0 mmol/l (132-148) 06/28/17 09:52 Chloride 103.0 mmol/L (98-107) 06/28/17 09:52 Glucose 98 mg/dl (75-110) 06/28/17 09:52 Lactate 0.7 mmol/L (0.7-2.1) 06/28/17 09:52 Liter Flow 3.0 06/28/17 09:52 FiO2 30.0 % 06/28/17 09:52 Sodium 141 mmol/L (132-148) 06/30/17 06:39 Potassium 3.4 mmol/L (3.6-5.2) L 06/30/17 06:39 Chloride 101 mmol/L (98-107) 06/30/17 06:39 Carbon Dioxide 23 mmol/L (22-30) 06/30/17 06:39 Anion Gap 20 (10-20) 06/30/17 06:39 BUN 2 mg/dL (9-20) L 06/30/17 06:39 Creatinine 0.6 mg/dL (0.8-1.5) L 06/30/17 06:39 Est GFR ( Amer) > 60 06/30/17 06:39 Est GFR (Non-Af Amer) > 60 06/30/17 06:39 Random Glucose 99 mg/dL (75-110) 06/30/17 06:39 Calcium 9.3 mg/dl (8.6-10.4) 06/30/17 06:39 Phosphorus 3.2 mg/dL (2.5-4.5) 06/30/17 06:39 Magnesium 1.7 mg/dL (1.6-2.3) 06/30/17 06:39 Iron 334 ug/dL (49-181) H 06/28/17 17:22 TIBC 337 ug/dL (250-450) 06/28/17 17:22 % Saturation 99 (20-55) H 06/28/17 17:22 Ferritin 71.9 ng/mL 06/28/17 17:22 Total Bilirubin 1.7 mg/dL (0.2-1.3) H 06/30/17 06:39 AST 289 U/L (17-59) H D 06/30/17 06:39 ALT 101 U/L (21-72) H D 06/30/17 06:39 Alkaline Phosphatase 102 U/L (38-126) 06/30/17 06:39 Total Creatine Kinase 531 U/L (55-170) H 06/28/17 22:49 CK-MB (Mass) 1.77 ng/mL (0.0-3.38) 06/28/17 22:49 Troponin I < 0.0120 ng/mL (0.00-0.120) 06/28/17 22:49 Total Protein 9.1 g/dL (6.3-8.3) H 06/30/17 06:39 Albumin 4.7 g/dL (3.5-5.0) 06/30/17 06:39 Globulin 4.4 gm/dL (2.2-3.9) H 06/30/17 06:39 Albumin/Globulin Ratio 1.1 (1.0-2.1) 06/30/17 06:39 Triglycerides 81 mg/dL (0-149) 06/29/17 06:34 Cholesterol 359 mg/dL (0-199) H 06/29/17 06:34 LDL Cholesterol Direct 263 mg/dL (0-129) H 06/29/17 06:34 HDL Cholesterol 71 mg/dL (30-70) H 06/29/17 06:34 Amylase 119 U/L (30-110) H 06/28/17 05:42 Lipase 123 U/L (23-300) 06/28/17 05:42 Free T4 0.98 ng/dL (0.78-2.19) 06/29/17 06:34 TSH 3rd Generation 1.11 mIU/L (0.46-4.68) 06/29/17 06:34 Arterial Blood Potassium 3.0 mmol/L (3.6-5.2) L 06/28/17 09:52 Urine Color Yellow (YELLOW) 06/28/17 06:20 Urine Clarity Hazy (Clear) 06/28/17 06:20 Urine pH 6.0 (5.0-8.0) 06/28/17 06:20 Ur Specific Staples 1.019 (1.003-1.030) 06/28/17 06:20 Urine Protein 3+ mg/dL (NEGATIVE) H 06/28/17 06:20 Urine Glucose (UA) 1+ mg/dL (Normal) H 06/28/17 06:20 Urine Ketones 1+ mg/dL (NEGATIVE) H 06/28/17 06:20 Urine Blood 1+ (NEGATIVE) H 06/28/17 06:20 Urine Nitrate Negative (NEGATIVE) 06/28/17 06:20 Urine Bilirubin Negative (NEGATIVE) 06/28/17 06:20 Urine Urobilinogen Normal mg/dL (0.2-1.0) 06/28/17 06:20 Ur Leukocyte Esterase Neg Chris/uL (Negative) 06/28/17 06:20 Urine WBC (Auto) 4 /hpf (0-5) 06/28/17 06:20 Urine RBC (Auto) 7 /hpf (0-3) H 06/28/17 06:20 Ur Squamous Epith Cells 1 /hpf (0-5) 06/28/17 06:20 Hyaline Casts 6-10 /lpf (0-2) H 06/28/17 06:20 Stool Occult Blood Negative (NEGATIVE) 06/28/17 09:11 Urine Opiates Screen Negative (NEGATIVE) 06/28/17 06:20 Urine Methadone Screen Negative (NEGATIVE) 06/28/17 06:20 Ur Barbiturates Screen Negative (NEGATIVE) 06/28/17 06:20 Ur Phencyclidine Scrn Negative (NEGATIVE) 06/28/17 06:20 Ur Amphetamines Screen Negative (NEGATIVE) 06/28/17 06:20 U Benzodiazepines Scrn Negative (NEGATIVE) 06/28/17 06:20 U Oth Cocaine Metabols Negative (NEGATIVE) 06/28/17 06:20 U Cannabinoids Screen Negative (NEGATIVE) 06/28/17 06:20 Alcohol, Quantitative < 10 mg/dl (0-10) 06/28/17 05:42 Hepatitis A IgM Ab Negative (NEGATIVE) 06/28/17 14:20 Hep Bs Antigen Negative (NEGATIVE) 06/28/17 14:20 Hep B Core IgM Ab Negative (NEGATIVE) 06/28/17 14:20 Hepatitis C Antibody Negative (NEGATIVE) 06/28/17 14:20 - Hospital Course Hospital Course: CC: "I passed out" HPI: Mr Back is a 37 year old male with a past medical history of chronic alcohol abuse who presented to the ER because his son saw him this AM with involuntary shaking. Per patient, he woke up at 4AM with left-sided squeezing chest pain while sitting on the couch and then he lost consciousness and woke up on the ground. He was then brought to the ER. He does not remember having urine or stool incontinence. His last drink was a 5th of vodka 2 days ago split with a friend. He said yesterday he vomited 7x, non-bloody. He reports having a normal appearing bowel movement yesterday. He stated that yesterday he noticed he had tremors. Of importance, he reports daily spontaneous nose bleeds for the past 6 months. He also noted black stool 1x about 2 months ago. In addition, he states that he began taking aspirin 3 months ago because he read online that it helps relieve chest pain. ED: Librium 100mg, Ativan 1mg IV, magnesium, Fluids -> patient was accepted by ICU PMD: none PMHx: chronic alcohol abuse PSHx: denies Allergies: NKA Home Medications: Aspirin 81mg PO QD FamHx: denies SocialHx: smokes baby cigars twice a week for past 5 years; drinks a 5th of vodka daily (per he used to drink less but lately it's been a 5th of vodka daily); denies illicit drug use; unemployed; lives at home with and son Hospital Course: Patient was admitted for alcohol withdrawal seizure. In the ED, he was given Librium 100mg, Ativan 10mg IV, Magnesium, and Fluids. Patient was accepted by ICU due to risk of delirium tremens. In the ICU, patient had possible seizure activity with stool incontinence and signs of alcohol withdrawal with tremors. Head CT showed no evidence of acute intracranial abnormality. Abdominal US showed fatty infiltration of the liver with evidence of biliary obstruction. Due to recent spontaneous epistaxis and melanotic stool, Dr. Ricardo was consulted for possible upper GI bleed. Rectal exam was negative with no evidence of melena or BRB. Patient was scheduled for EGD today (06/30/17), but he refused this morning and demanded that he leave the hospital. As per night nurse, he was disoriented last night, calling out for his son and stating that he was at his own home. However, this morning, the patient was AAOx3, and knew the name of the president. He exhibited slight tremor of the hands. Patient insisted he goes home in order to take care of his and children. As per Dr. Sanches, if patient is oriented at this time and is not having any withdrawal symptoms, patient is stable enough to make his own medical decision. Risks were discussed and understood by patient. Patient signed out against medical advice. Please note that this is a summary of events. For more details, please see complete medical record. Discharge Exam - Head Exam Head Exam: ATRAUMATIC, NORMOCEPHALIC - Eye Exam Eye Exam: EOMI, PERRL. absent: Scleral icterus - ENT Exam ENT Exam: Normal Exam (tongue- bleeding, ecchymosis, cuts/lesions noted) - Respiratory Exam Respiratory Exam: NORMAL BREATHING PATTERN. absent: Rales, Rhonchi, Wheezes, Respiratory Distress - Cardiovascular Exam Cardiovascular Exam: REGULAR RHYTHM, +S1, +S2 - GI/Abdominal Exam GI & Abdominal Exam: Normal Bowel Sounds, Soft. absent: Tenderness - Extremities Exam Extremities exam: normal inspection - Neurological Exam Neurological exam: Alert, Oriented x3 Additional comments: slight tremor noted with extension of the UE - Psychiatric Exam Psychiatric exam: Anxious - Skin Skin Exam: Dry, Intact, Normal Color, Warm Discharge Plan - Follow Up Plan Condition: SERIOUS Disposition: AGAINST MEDICAL ADVICE Additional Instructions: Patient signed out AMA. Patient is oriented x3, knows the president, and understands the risks he is taking. Patient is advised to return to the ED at any time as needed. Patient encouraged to follow up with GI and PMD as outpatient for continued care. <Evangelist Bernal - Last Filed: 06/30/17 18:58> Provider - Provider Date of Admission: 06/28/17 07:58 Attending physician: Frances Mas MD Hospital Course - Lab Results Lab Results: Micro Results 06/29/17 16:30 Nose MRSA Culture - Final MRSA NOT DETECTED 06/28/17 10:04 Nose MRSA Culture (Admit) - Final MRSA NOT DETECTED Most Recent Lab Values WBC 4.7 K/uL (4.8-10.8) L 06/30/17 06:39 RBC 3.73 Mil/uL (4.40-5.90) L 06/30/17 06:39 Hgb 11.5 g/dL (12.0-18.0) L 06/30/17 06:39 Hct 34.1 % (35.0-51.0) L 06/30/17 06:39 MCV 91.4 fL (80.0-94.0) 06/30/17 06:39 MCH 30.8 pg (27.0-31.0) 06/30/17 06:39 MCHC 33.7 g/dL (33.0-37.0) 06/30/17 06:39 RDW 14.6 % (11.5-14.5) H 06/30/17 06:39 Plt Count 80 K/uL (130-400) L 06/30/17 06:39 MPV 9.6 fL (7.2-11.7) 06/30/17 06:39 Neut % (Auto) 57.7 % (50.0-75.0) 06/29/17 06:34 Lymph % (Auto) 26.3 % (20.0-40.0) 06/29/17 06:34 [place] % (Auto) 13.7 % (0.0-10.0) H 06/29/17 06:34 Eos % (Auto) 0.9 % (0.0-4.0) 06/29/17 06:34 Baso % (Auto) 1.4 % (0.0-2.0) 06/29/17 06:34 Neut # (Auto) 2.1 K/uL (1.8-7.0) 06/29/17 06:34 Lymph # (Auto) 1.0 K/uL (1.0-4.3) 06/29/17 06:34 [place] # (Auto) 0.5 K/uL (0.0-0.8) 06/29/17 06:34 Eos # (Auto) 0.0 K/uL (0.0-0.7) 06/29/17 06:34 Baso # (Auto) 0.0 K/uL (0.0-0.2) 06/29/17 06:34 Differential Comment 06/28/17 05:42 PT 12.1 SECONDS (9.7-12.2) 06/30/17 06:39 INR 1.1 06/30/17 06:39 Puncture Site Rba 06/28/17 09:52 pCO2 36 mm/Hg (35-45) 06/28/17 09:52 pO2 127 mm/Hg (80-100) H 06/28/17 09:52 HCO3 26.5 mmol/L (21-28) 06/28/17 09:52 ABG pH 7.46 (7.35-7.45) H 06/28/17 09:52 ABG Total CO2 26.7 mmol/L (22-28) 06/28/17 09:52 ABG O2 Saturation 99.8 % (95-98) H 06/28/17 09:52 ABG Base Excess 2.0 mmol/L (-2.0-3.0) 06/28/17 09:52 Thiago Test Na 06/28/17 09:52 ABG Potassium 3.0 mmol/L (3.6-5.2) L 06/28/17 09:52 A-a O2 Difference 42.0 mm/Hg 06/28/17 09:52 Respiratory Index 0.3 06/28/17 09:52 Sodium 136.0 mmol/l (132-148) 06/28/17 09:52 Chloride 103.0 mmol/L (98-107) 06/28/17 09:52 Glucose 98 mg/dl (75-110) 06/28/17 09:52 Lactate 0.7 mmol/L (0.7-2.1) 06/28/17 09:52 Liter Flow 3.0 06/28/17 09:52 FiO2 30.0 % 06/28/17 09:52 Sodium 141 mmol/L (132-148) 06/30/17 06:39 Potassium 3.4 mmol/L (3.6-5.2) L 06/30/17 06:39 Chloride 101 mmol/L (98-107) 06/30/17 06:39 Carbon Dioxide 23 mmol/L (22-30) 06/30/17 06:39 Anion Gap 20 (10-20) 06/30/17 06:39 BUN 2 mg/dL (9-20) L 06/30/17 06:39 Creatinine 0.6 mg/dL (0.8-1.5) L 06/30/17 06:39 Est GFR ( Amer) > 60 06/30/17 06:39 Est GFR (Non-Af Amer) > 60 06/30/17 06:39 Random Glucose 99 mg/dL (75-110) 06/30/17 06:39 Calcium 9.3 mg/dl (8.6-10.4) 06/30/17 06:39 Phosphorus 3.2 mg/dL (2.5-4.5) 06/30/17 06:39 Magnesium 1.7 mg/dL (1.6-2.3) 06/30/17 06:39 Iron 334 ug/dL (49-181) H 06/28/17 17:22 TIBC 337 ug/dL (250-450) 06/28/17 17:22 % Saturation 99 (20-55) H 06/28/17 17:22 Ferritin 71.9 ng/mL 06/28/17 17:22 Total Bilirubin 1.7 mg/dL (0.2-1.3) H 06/30/17 06:39 AST 289 U/L (17-59) H D 06/30/17 06:39 ALT 101 U/L (21-72) H D 06/30/17 06:39 Alkaline Phosphatase 102 U/L (38-126) 06/30/17 06:39 Total Creatine Kinase 531 U/L (55-170) H 06/28/17 22:49 CK-MB (Mass) 1.77 ng/mL (0.0-3.38) 06/28/17 22:49 Troponin I < 0.0120 ng/mL (0.00-0.120) 06/28/17 22:49 Total Protein 9.1 g/dL (6.3-8.3) H 06/30/17 06:39 Albumin 4.7 g/dL (3.5-5.0) 06/30/17 06:39 Globulin 4.4 gm/dL (2.2-3.9) H 06/30/17 06:39 Albumin/Globulin Ratio 1.1 (1.0-2.1) 06/30/17 06:39 Triglycerides 81 mg/dL (0-149) 06/29/17 06:34 Cholesterol 359 mg/dL (0-199) H 06/29/17 06:34 LDL Cholesterol Direct 263 mg/dL (0-129) H 06/29/17 06:34 HDL Cholesterol 71 mg/dL (30-70) H 06/29/17 06:34 Amylase 119 U/L (30-110) H 06/28/17 05:42 Lipase 123 U/L (23-300) 06/28/17 05:42 Free T4 0.98 ng/dL (0.78-2.19) 06/29/17 06:34 TSH 3rd Generation 1.11 mIU/L (0.46-4.68) 06/29/17 06:34 Arterial Blood Potassium 3.0 mmol/L (3.6-5.2) L 06/28/17 09:52 Urine Color Yellow (YELLOW) 06/28/17 06:20 Urine Clarity Hazy (Clear) 06/28/17 06:20 Urine pH 6.0 (5.0-8.0) 06/28/17 06:20 Ur Specific Staples 1.019 (1.003-1.030) 06/28/17 06:20 Urine Protein 3+ mg/dL (NEGATIVE) H 06/28/17 06:20 Urine Glucose (UA) 1+ mg/dL (Normal) H 06/28/17 06:20 Urine Ketones 1+ mg/dL (NEGATIVE) H 06/28/17 06:20 Urine Blood 1+ (NEGATIVE) H 06/28/17 06:20 Urine Nitrate Negative (NEGATIVE) 06/28/17 06:20 Urine Bilirubin Negative (NEGATIVE) 06/28/17 06:20 Urine Urobilinogen Normal mg/dL (0.2-1.0) 06/28/17 06:20 Ur Leukocyte Esterase Neg Chris/uL (Negative) 06/28/17 06:20 Urine WBC (Auto) 4 /hpf (0-5) 06/28/17 06:20 Urine RBC (Auto) 7 /hpf (0-3) H 06/28/17 06:20 Ur Squamous Epith Cells 1 /hpf (0-5) 06/28/17 06:20 Hyaline Casts 6-10 /lpf (0-2) H 06/28/17 06:20 Stool Occult Blood Negative (NEGATIVE) 06/28/17 09:11 Urine Opiates Screen Negative (NEGATIVE) 06/28/17 06:20 Urine Methadone Screen Negative (NEGATIVE) 06/28/17 06:20 Ur Barbiturates Screen Negative (NEGATIVE) 06/28/17 06:20 Ur Phencyclidine Scrn Negative (NEGATIVE) 06/28/17 06:20 Ur Amphetamines Screen Negative (NEGATIVE) 06/28/17 06:20 U Benzodiazepines Scrn Negative (NEGATIVE) 06/28/17 06:20 U Oth Cocaine Metabols Negative (NEGATIVE) 06/28/17 06:20 U Cannabinoids Screen Negative (NEGATIVE) 06/28/17 06:20 Alcohol, Quantitative < 10 mg/dl (0-10) 06/28/17 05:42 LEVAR 6 Profile Positive (NEGATIVE) H 06/29/17 10:41 LEVAR Titer 1:80 H 06/29/17 10:41 LEVAR Pattern Speckled H 06/29/17 10:41 Hepatitis A IgM Ab Negative (NEGATIVE) 06/28/17 14:20 Hep Bs Antigen Negative (NEGATIVE) 06/28/17 14:20 Hep B Core IgM Ab Negative (NEGATIVE) 06/28/17 14:20 Hepatitis C Antibody Negative (NEGATIVE) 06/28/17 14:20 Attending/Attestation - Attestation I have personally seen and examined this patient.: No I have fully participated in the care of the patient.: No I have reviewed all pertinent clinical information, including history, physical exam and plan: Yes Notes (Text): 06/30/17 18:58 Patient signed AMA before my examination Evangelist Bernal D.O.
--- NOTE | 2017-06-30 10:20 | CP.PCM.PN ---
<EloiseShannon - Last Filed: 06/30/17 10:16> Subjective - Date & Time of Evaluation Date of Evaluation: 06/30/17 Time of Evaluation: 09:00 - Subjective Subjective: Gastroenterology Follow Up Patient was seen and examined at bedside. Patient was AAO x 3. Denied any bleeding overnight. No bowel movement this morning. He is tolerating diet. 12 point ROS unremarkable. Objective - Vital Signs/Intake and Output Vital Signs (last 24 hours): Temp Pulse Resp BP Pulse Ox 98.9 F 73 20 130/86 98 06/30/17 07:17 06/30/17 07:17 06/30/17 07:17 06/30/17 07:17 06/30/17 07:17 Intake and Output: 06/30/17 06/30/17 06:59 18:59 Intake Total 650 Balance 650 - Medications Medications: Current Medications Chlordiazepoxide (Librium) 25 mg PO Q8 [facility] Last Admin: 06/30/17 05:35 Dose: 25 mg Clonidine HCl (Catapres) 0.1 mg PO Q4H PRN PRN Reason: Symptoms of alcohol withdrawl Last Admin: 06/28/17 09:09 Dose: 0.1 mg Sodium Chloride (Sodium Chloride 0.9%) 1,000 mls @ 75 mls/hr IV .[id number] [facility] Last Admin: 06/30/17 00:31 Dose: 75 mls/hr Folic Acid 1 mg/ Multivitamins (/Vitamin C 10 ml/ Dextrose) 1,010.2 mls @ 100 mls/hr IV Q24H [facility] Stop: 06/30/17 21:52 Last Admin: 06/29/17 12:30 Dose: 100 mls/hr Lorazepam (Ativan) 2 mg IVP Q4H PRN PRN Reason: Symptoms of alcohol w/d if npo Ondansetron HCl (Zofran Inj) 4 mg IVP Q6H PRN PRN Reason: Nausea/Vomiting Pantoprazole Sodium (Protonix Inj) 40 mg IVP Q12H [facility] Last Admin: 06/30/17 09:54 Dose: Not Given Thiamine HCl (Vitamin B1 Tab) 100 mg PO DAILY [facility] Last Admin: 06/30/17 09:54 Dose: Not Given - Labs Labs: 06/30/17 06:39 06/30/17 06:39 PT 12.1 SECONDS (9.7-12.2) 06/30/17 06:39 INR 1.1 06/30/17 06:39 - Constitutional Appears: No Acute Distress - Head Exam Head Exam: NORMAL INSPECTION, NORMOCEPHALIC - Eye Exam Eye Exam: EOMI, Normal appearance, PERRL. absent: Nystagmus, Scleral icterus Pupil Exam: NORMAL ACCOMODATION - ENT Exam ENT Exam: Mucous Membranes Moist, Normal Exam - Respiratory Exam Respiratory Exam: Clear to Ausculation Bilateral, NORMAL BREATHING PATTERN. absent: Decreased Breath Sounds - Cardiovascular Exam Cardiovascular Exam: REGULAR RHYTHM - GI/Abdominal Exam GI & Abdominal Exam: Soft, Normal Bowel Sounds. absent: Distended, Tenderness, Organomegaly - Rectal Exam Rectal Exam: Deferred - Extremities Exam Extremities Exam: Normal Inspection. absent: Pedal Edema, Tenderness - Neurological Exam Neurological Exam: Alert, Awake, Oriented x3 - Psychiatric Exam Psychiatric exam: Normal Affect, Normal Mood - Skin Skin Exam: Dry, Intact, Normal Color, Warm Assessment and Plan - Assessment and Plan (Free Text) Assessment: Yury Back is a 37M w/ hx of Chronic ETOH abuse who presented to the ED after a witnessed seizure. Transaminasemia likely 2/2 Alcoholic Hepatitis, r/o autoimmune ETOH Abuse DTs Alcohol Withdrawal Anemia Plan: - MELD score of 10 (06/29) - Acute viral hepatitis panel negative - Pending autoimmune workup - Advised ETOH cessation - Patient refused inpatient EGD. Recommend follow up with primary for a referral to GI for outpatient EGD for variceal screening - GI will be signing off at this time DW Dr. Ricardo, Shannon Navas DO, PGY-1 <Yoon Ricardo - Last Filed: 06/30/17 11:11> Objective - Vital Signs/Intake and Output Vital Signs (last 24 hours): Temp Pulse Resp BP Pulse Ox 98.9 F 73 20 130/86 98 06/30/17 07:17 06/30/17 07:17 06/30/17 07:17 06/30/17 07:17 06/30/17 07:17 Intake and Output: 06/30/17 06/30/17 06:59 18:59 Intake Total 650 Balance 650 - Medications Medications: Current Medications Chlordiazepoxide (Librium) 25 mg PO Q8 [facility] Last Admin: 06/30/17 05:35 Dose: 25 mg Clonidine HCl (Catapres) 0.1 mg PO Q4H PRN PRN Reason: Symptoms of alcohol withdrawl Last Admin: 06/28/17 09:09 Dose: 0.1 mg Sodium Chloride (Sodium Chloride 0.9%) 1,000 mls @ 75 mls/hr IV .[id number] [facility] Last Admin: 06/30/17 00:31 Dose: 75 mls/hr Folic Acid 1 mg/ Multivitamins (/Vitamin C 10 ml/ Dextrose) 1,010.2 mls @ 100 mls/hr IV Q24H [facility] Stop: 06/30/17 21:52 Last Admin: 06/29/17 12:30 Dose: 100 mls/hr Lorazepam (Ativan) 2 mg IVP Q4H PRN PRN Reason: Symptoms of alcohol w/d if npo Ondansetron HCl (Zofran Inj) 4 mg IVP Q6H PRN PRN Reason: Nausea/Vomiting Pantoprazole Sodium (Protonix Inj) 40 mg IVP Q12H [facility] Last Admin: 06/30/17 09:54 Dose: Not Given Thiamine HCl (Vitamin B1 Tab) 100 mg PO DAILY [facility] Last Admin: 06/30/17 09:54 Dose: Not Given - Labs Labs: 06/30/17 06:39 06/30/17 06:39 PT 12.1 SECONDS (9.7-12.2) 06/30/17 06:39 INR 1.1 06/30/17 06:39 Attending/Attestation - Attestation I have personally seen and examined this patient.: Yes I have fully participated in the care of the patient.: Yes I have reviewed all pertinent clinical information, including history, physical exam and plan: Yes Notes (Text): 06/30/17 11:09 Patient seen with GI fellow. This is a 37 yr old M with history of chronic ETOH abuse who presented to the ED after a witnessed DTs and seizures. He is currently on seizure precaution. Rectal exam was neg with no evidence of melena or BRBPR. He was scheduled for EGD on Friday but he refused. Autoimmune markers are negative but hepatitis panel is negative. Patient counselled on following with GI as outpatient and strict alcohol cessation
[2017-06-30 12:18] LABS: ANA PATTERN SPECKLED
[2017-07-01 08:56] LABS: CERULOPLASMIN 22 mg/dL (18-36)
== END 2017-06-30 11:29 | disposition left against medical advice (07) | DRG 894 ==
LOC: C.ER 05:04 → C.9S 07:58 → C.9E 08:50 → C.9I 08:51 → C.3T 06-29 16:05
PROVIDERS: ADMIT Internal Medicine; ATTEND Internal Medicine
PROC: HZ2ZZZZ Detoxification Services for Substance Abuse Treatment (ICD-10-PCS; principal; 2017-06-28)
DX: F10.231 Alcohol dependence with withdrawal delirium (principal); D61.818 Other pancytopenia; K92.0 Hematemesis; E87.2 Acidosis; R56.9 Unspecified convulsions; D69.6 Thrombocytopenia, unspecified; R15.9 Full incontinence of feces; K70.10 Alcoholic hepatitis without ascites; K76.0 Fatty (change of) liver, not elsewhere classified; R04.0 Epistaxis; S01.512A Laceration without foreign body of oral cavity, initial encounter; F17.210 Nicotine dependence, cigarettes, uncomplicated; R07.9 Chest pain, unspecified; Y90.0 Blood alcohol level of less than 20 mg/100 ml